=== PATIENT | female | born 1985 | race Caucasian/White ===

== ENCOUNTER 2019-09-20 10:03 | Outpatient (CLI) | payer MEDICAID, SELFPAY ==
--- NOTE | 2019-09-20 | US_ITS ---
WS: [id number] ABDOMINAL ULTRASOUND REASON FOR EXAM: LIVER ENZIMES TECHNIQUE: Grayscale and Doppler ultrasound examination of the abdomen. FINDINGS: Pancreas: Normal Abdominal aorta and IVC: Normal. Liver: Liver measures 12.6 cm in length. Coarse echotexture throughout the liver consistent with fatt y infiltration. Gallbladder: Status post cholecystectomy Common bile duct measures 0.39 cm multiple hepatopedal circu lation. Left kidney: Left kidney measures 10.8 cm x 6.1 cm x 5.8 cm. No hydronephrosis no stones Right kidney : Right kidney measures 10.7 cm x 5.6 cm x 5.6 cmNo . Hydronephrosis no stones US/US abdomen complete* [id number] IMPRESSION: Fatty infiltration of the liver Status post cholecystectomy
== END 2019-09-20 10:04 | disposition home or self-care (01) ==
LOC: US 10:07
PROVIDERS: PCP Family Medicine; Visit Provider Family Medicine
DX: R74.0 Nonspecific elevation of levels of transaminase and lactic acid dehydrogenase [LDH] (principal); K76.0 Fatty (change of) liver, not elsewhere classified
CPT/HCPCS: 76700

== ENCOUNTER 2019-12-11 15:11 | Outpatient (CLI) | payer MEDICAID, SELFPAY ==
--- NOTE | 2019-12-11 15:15 | XRR_ITS ---
PROCEDURE INFORMATION: Exam: XR Chest, 2 Views Exam date and time: 12/11/2019 3:31 PM Age: 34 years old Clinical indication: Cough and shortness of breath; Chest pain; Prior surgery; Surgery type: Lung biopsy; Additional info: Acute bronchiolitis TECHNIQUE: Imaging protocol: XR of the chest Views: 2 views. COMPARISON: CR Chest 2 views* [id number] 05/24/2017 11:57 AM FINDINGS: Lungs: Unremarkable. No consolidation. Pleural space: Unremarkable. No pleural effusion. No pneumothorax. Heart/Mediastinum: Unremarkable. No cardiomegaly. Bones/joints: Unremarkable. XR/XR chest 2V* [id number] IMPRESSION: No acute findings. For no change from prior x-ray.
== END 2019-12-11 15:12 | disposition home or self-care (01) ==
LOC: RAD 15:14
PROVIDERS: PCP Family Medicine; Visit Provider Family Medicine
DX: J21.9 Acute bronchiolitis, unspecified (principal)
CPT/HCPCS: 71046

== ENCOUNTER → 2022-08-01 13:56 | Outpatient (BNVA) | payer MEDICAID, SELFPAY | PROVIDERS: PCP Family Medicine; Visit Provider Nurse Practitioner | DX: M99.08 Segmental and somatic dysfunction of rib cage (principal) | CPT/HCPCS: 81000 ==

== ENCOUNTER → 2023-04-26 12:34 | Outpatient (BNVA) | payer MEDICAID, SELFPAY | PROVIDERS: PCP Family Medicine; Visit Provider Family Medicine | DX: E53.8 Deficiency of other specified B group vitamins (principal); E51.9 Thiamine deficiency, unspecified; Z13.220 Encounter for screening for lipoid disorders; E11.9 Type 2 diabetes mellitus without complications; Z51.81 Encounter for therapeutic drug level monitoring; E55.9 Vitamin D deficiency, unspecified | CPT/HCPCS: 80053; 80061; 82306; 82607; 83036; 84425; 85025 ==

== ENCOUNTER → 2023-09-21 13:10 | Outpatient (BNVA) | payer MEDICAID, SELFPAY | PROVIDERS: PCP Family Medicine; Visit Provider Family Medicine | DX: Z51.81 Encounter for therapeutic drug level monitoring (principal); E11.9 Type 2 diabetes mellitus without complications; E55.9 Vitamin D deficiency, unspecified | CPT/HCPCS: 80053; 82306; 83036; 85025 ==

== ENCOUNTER → 2024-01-05 10:01 | Outpatient (BNVA) | payer MEDICAID, SELFPAY | PROVIDERS: PCP Family Medicine; Visit Provider Family Medicine | DX: E11.9 Type 2 diabetes mellitus without complications (principal) | CPT/HCPCS: 83036 ==

== ENCOUNTER → 2024-04-25 10:11 | Outpatient (BNVA) | payer MEDICAID, SELFPAY | PROVIDERS: PCP Family Medicine; Visit Provider Student in an Organized Health Care Education/Training Program | DX: G56.03 Carpal tunnel syndrome, bilateral upper limbs | CPT/HCPCS: 73110; 99203 ==

== ENCOUNTER → 2024-05-08 12:57 | Outpatient (BNVA) | payer MEDICAID, SELFPAY | PROVIDERS: PCP Family Medicine; Visit Provider Family Medicine | DX: E11.9 Type 2 diabetes mellitus without complications (principal) | CPT/HCPCS: 83036 ==

== ENCOUNTER → 2024-05-09 15:58 | Outpatient (BNVA) | payer MEDICAID, SELFPAY | PROVIDERS: PCP Family Medicine; Referring Provider Student in an Organized Health Care Education/Training Program; Visit Provider Psychiatry & Neurology Neurology | DX: R20.0 Anesthesia of skin (principal) | CPT/HCPCS: 95912 ==

== ENCOUNTER → 2024-06-19 14:20 | Outpatient (BNVA) | payer MEDICAID, SELFPAY | PROVIDERS: PCP Family Medicine; Visit Provider Student in an Organized Health Care Education/Training Program | DX: G56.03 Carpal tunnel syndrome, bilateral upper limbs (principal) | CPT/HCPCS: 99214 ==

== ENCOUNTER 2024-07-12 06:30 | Day surgery (SDC) | payer MEDICAID, SELFPAY ==
[2024-07-12] VITALS (8 sets, daily range): BP systolic 138–177; BP diastolic 76–113; PULSE 84–102; RESP 16–18; TEMP 36.1–36.4; O2SAT 97–100; BMI 28.3
[2024-07-12] MEDS: sodium chloride 0.9% 1,000 ML 30 ML IV (07:00)
[2024-07-12 07:01] LABS: Glucose Point of Care 119 mg/dL (70-110)
[2024-07-12] MEDS: acetaminophen 1,000 MG/100 ML PIGGYBACK 400 MG IV (07:01)
[2024-07-12] MEDS: scopolamine 1 mg PATCH 1 PATCH TRANSDERMA (07:01)
[2024-07-12] MEDS: ketorolac 30 mg/mL INJ IVP (07:01)
--- NOTE | 2024-07-12 07:33 | ANES.PREANE2 ---
Pre-Anesthetic Assessment Height/Weight: Height 1.55 m Weight 68.039 kg Temp Pulse Resp BP Pulse Ox O2 Del Method 97.5 F L 99 16 155/110 98 Room Air 07/12/24 06:46 07/12/24 06:46 07/12/24 06:46 07/12/24 07:01 07/12/24 06:46 07/12/24 06:46 Operation Date: 07/12/24 08:00 Proposed Procedures p RIGHT Carpal Tunnel Release(Right) - David Ortiz, Last intake: Intake Last Liquid Date 07/11/24 Last Liquid Time 20:30 Last Solid Date 07/11/24 Last Solid Time 20:30 Social Tobacco and No alcohol Exam alert, oriented x 3 and clear to auscultation bilaterally (Normal Cardiac) Airway Submandibular: within normal limits Cervical ROM: within normal limits Mallampati: Class II Pulmonary Chronic Obstructive Pulmonary Disease Metabolic Diabetes Mellitus and Hyperlipidemia Neuropsych Anxiety and Depression Anesthetic Plan ASA status: 3 Anesthesia: MAC Medications/Allergies Home Medications ?Medication ?Instructions ?Recorded ?Confirmed ?Last Taken ?Type blood sugar diagnostic (True #100 ea 04/26/23 06/19/24 07/11/24 20:30 Rx Metrix Glucose Test Strip) cyanocobalamin (vitamin B-12) 500 500 mcg PO DAILY #30 tabs 04/26/23 07/11/24 07/11/24 20:30 Rx mcg tablet (Vitamin B-12) pen needle, diabetic 31 gauge x #100 ea 04/26/23 06/19/24 07/11/24 20:30 Rx 5/16 (TechLITE Pen Needle) thiamine HCl (vitamin B1) 100 mg 100 mg PO DAILY #30 tabs 04/26/23 07/11/24 07/11/24 20:30 Rx tablet blood sugar diagnostic (OneTouch #100 ea 04/27/23 06/19/24 07/11/24 20:30 Rx Ultra Test strips) blood-glucose meter (OneTouch #1 ea 04/27/23 06/19/24 07/11/24 20:30 Rx Ultra2 Meter) lancets 33 gauge (OneTouch Delica #100 ea 04/27/23 06/19/24 07/11/24 20:30 Rx Plus Lancet) cholecalciferol (vitamin D3) 50 50 mcg PO DAILY #30 caps 05/24/23 07/11/24 07/11/24 20:30 Rx mcg (2,000 unit) capsule insulin glargine 100 unit/mL (3 35 unit (0.35 mL) SUBCUT QAM #15 mL 08/22/23 07/11/24 07/11/24 20:30 Rx mL) subcutaneous pen (Lantus Solostar U-100 Insulin) Symbicort 80 mcg-4.5 mcg/actuation See Rx Instructions .Route 12/26/23 07/11/24 07/11/24 20:30 Rx HFA aerosol inhaler .COMPLEX #11 grams (budesonide-formoterol) quetiapine 25 mg tablet (Seroquel) 25 mg PO DAILY #30 tabs 12/26/23 07/11/24 07/11/24 20:30 Rx venlafaxine 75 mg capsule,extended See Rx Instructions .Route 12/26/23 07/11/24 07/11/24 20:30 Rx release 24 hr .COMPLEX #30 caps blood-glucose meter,continuous #1 ea 01/05/24 06/19/24 07/11/24 20:30 Rx (Dexcom G6 Environmental Health Physician) blood-glucose sensor (Dexcom G6 #3 ea 01/05/24 06/19/24 07/11/24 20:30 Rx Sensor device) atorvastatin 10 mg tablet 10 mg PO DAILY #30 tabs 03/04/24 07/11/24 07/11/24 20:30 Rx pen needle, diabetic 31 gauge x #100 ea 03/04/24 06/19/24 07/11/24 20:30 Rx 5/16 (Pentips Pen Needle) albuterol sulfate 90 mcg/actuation 2 puff inhalation Q6H PRN 04/15/24 07/11/24 07/11/24 20:30 Rx aerosol inhaler shortness of breath or wheezing #8.5 grams metformin 500 mg tablet 500 mg PO BID #60 tabs 04/15/24 07/11/24 07/11/24 20:30 Rx blood-glucose transmitter (Dexcom #1 ea 05/08/24 06/19/24 07/11/24 20:30 Rx G6 Transmitter device) dulaglutide 1.5 mg/0.5 mL See Rx Instructions .Route 02/08/2507/11/24 07/11/24 20:30 Rx subcutaneous pen injector .COMPLEX #2 mL Allergies Allergy/AdvReac Type Severity Reaction Status Date / Time gabapentin Allergy Severe unknown Verified 07/12/24 06:42 amitriptyline Allergy ADR-slurred Verified 07/12/24 06:42 words Current Medications Generic Name Dose Route Start Last Admin Trade Name Freq PRN Reason Stop Dose Admin Sodium Chloride 1,000 mls @ 30 mls/hr 07/12/24 06:45 07/12/24 07:00 Sodium Chloride 0.9% IV 07/13/24 06:44 30 mls/hr .Q24H YARI Administration PFSH Anesthesia Medical History Diabetes Essential hypertension COPD (chronic obstructive pulmonary disease) Saw Dr. Pan at [facility] - Doesn't want to see again Surgical History Hx of cholecystectomy Hx of hysterectomy with BLO Family History Father CAD (coronary artery disease) Mother Cancer cervical cancer Social History Smoking and tobacco/nicotine status: current every day tobacco/nicotine user cigarettes Packs smoked per day: 0.25 Current occupational status: employed Current occupation: [employer] View Data Anesthesia Cardiac Studies: No Data to Display
--- NOTE | 2024-07-12 07:41 | W.PM.OPSUD ---
Surgery/Procedure H&P Update DATE OF PROCEDURE: July 12, 2024 DATE H&P PERFORMED: 06/19/24 H&P UPDATE INFORMATION: I have reviewed H&P completed within last 30 days, I have examined patient prior to procedure and No changes to prior documentation PREOP DIAGNOSIS: Right carpal tunnel syndrome PRIMARY INDICATION FOR PROCEDURE: Right carpal tunnel syndrome PLANNED PROCEDURE: Operation Date: 07/12/24 08:00 Proposed Procedures p RIGHT Carpal Tunnel Release(Right) - David Ortiz DO
[2024-07-12] MEDS: ceFAZolin 2,000 MG in sodium chloride 0.9% (plus) 50 ML 100 MG IV (07:51)
[2024-07-12] MEDS: ROPivacaine 0.5% SDV 30 mL 150 MG INJECTION (08:08)
[2024-07-12] MEDS: lidocaine-epi 1% 20 mL INJ INJECTION (08:09)
--- NOTE | 2024-07-12 08:27 | P.BOP_ITS ---
Date of Procedure: 07/12/24 Surgeon: David Ortiz DO Crane Assembler(s): None Procedure(s) performed: Right carpal tunnel release Findings of the procedure(s): Underwent procedure as planned without issues or complications Estimated blood loss: 2 mL Specimen(s) removed: None Post-operative diagnosis: Right carpal tunnel syndrome
--- NOTE | 2024-07-12 08:28 | P.OP_ITS ---
Operative Report Date of procedure: July 12, 2024 Surgeon: David Ortiz DO Procedure: Preop Diagnosis: Right Carpal Tunnel Syndrome Post-op diagnosis: Same Procedure done: 1. Right carpal tunnel release Surgeon: David Ortiz DO Anesthesia: MAC (Local) Estimated blood loss: 2 mL Tourniquet time 6 minutes IV fluids: See anesthesia record Complications: None Findings: See operative report narrative Condition: stable Disposition: same day Brief History: Patient is a pleasant 39 year-old female with right carpal tunnel syndrome. Patient has been worked up in the outpatient setting findings and physical exami nation consistent with this. Patient nerve conduction studies consistent with carpal tunnel syndrome. We detailed out patient's risk benefits complication alternatives with surgical and nonsurgical treatment options. Through shared decision making, patient agrees to proceed with surgical intervention of the right carpal tunnel release . Patient understands and agrees with current plan. All questions answered. Patient elects to proceed with surgical intervention with carpal tunnel release. Procedure: Patient seen and evaluated in the preoperative holding area. Consent was reviewed and signed with patient. Correct extremity was marked. Patient was seen evaluated by the anesthesia department once cleared for surgery was brought back to the operative suite. Patient was kept on [facility] in supine position all bony prominences were well-padded patient properly secured to the bed. Right upper extremity was then placed onto an armboard. A nonsterile tourniquet was applied to the Right upper arm. Patient underwent anesthesia per the anesthesia department. Patient's Right upper extremity was then prepped and draped in standard orthopedic fashion. Final timeout performed. Patient received appropriate preoperative antibiotics. Under sterile aseptic technique patient received local anesthesia over the preplanned carpal tunnel incision site. Esmarch was used to exsanguinate the Right upper extremity and tourniquet was insufflated to 250 mmHg. A standard mini open Right carpal tunnel incision was made. Starting distally at Angel's cardinal line in line with the fourth ray extending proximally distal to the wrist crease centered over the carpal tunnel. Sharp scalpel incision was made through skin and subcutaneous tissue. Self-retaining retractor was placed and the palmar fascia was identified. This was then split longitudinally and direct visualization of the transverse carpal ligament was then made. I then utilizing scalpel feathered through the transverse carpal ligament until I entered the floor of the transverse carpal tunnel ligament into the carpal tunnel. Next I switched to dissection scissors and completed my release of the transverse carpal ligament distally with care to protect the recurrent motor branch. I completely released into the palmar fat and until no entrapment was noted distally. Care was made to protect the superficial palmar arch during my distal dissection. Next I utilized a nasal speculum placed on top of the transverse carpal ligament and utilize this to retract the subcutaneous fat and tissue and under direct loupe magnification was able to identify the transverse carpal ligament. Next I then protected the contents of the carpal tunnel and subsequently utilizing dissection scissors under loupe magnification completely released the transverse carpal ligament proximally into the antebrachial fascia. Care was made to protect the palmar cutaneous branch by keeping my scissors curved ulnarly. Once completely released, I then placed my Richardson and had appropriate decompression of the carpal tunnel proximally as well as distally. I then inspected the contents of the carpal tunnel which showed an hourglass shape of the median nerve showing its compression. No masses were noted. Tendons appeared healthy. Wound was then thoroughly irrigated. Tourniquet deflated. Hemostasis satisfactory with bipolar electrocautery. I then closed the incision with interrupted nylon stitches. Xeroform 4 x 4's and a bulky soft dressing was applied. Patient was then awakened from anesthesia and taken to PACU in stable condition. Patient tolerated procedure without complications. Disposition: Patient taken to PACU in stable condition recovering well. Dressing clean dry and intact. Patient will receive appropriate discharge instructions as well as pain medication postoperatively. Patient to follow-up with me in the office in 2 weeks. They understand they may be weightbearing as tolerated to the right hand. Patient should keep incision clean dry and intact. Patient understands if any questions or concerns may contact the office.
[2024-07-12] MEDS: TRAMadol 50 mg Tablet PO (09:00)
--- NOTE | 2024-07-12 11:36 | ANE.PACU2 ---
Inpatient post-anesthesia follow up: Vital signs: Temperature 97.0 F Pulse Rate 91 Respiratory Rate 18 Blood Pressure 177/103 Pulse Oximetry 99 Oxygen Delivery Me thod Room Air Oxygen Flow Rate Fraction of Inspir ed Oxygen Hydration adequate: Yes Nausea and vomiting: No Pain level: 3 Mental status: Baseline
== END 2024-07-12 09:18 | disposition home or self-care (01) ==
PROVIDERS: PCP Family Medicine; Visit Provider Student in an Organized Health Care Education/Training Program
PROC: (CPT 64721; principal; 2024-07-12 07:50)
DX: G56.03 Carpal tunnel syndrome, bilateral upper limbs (principal); J44.9 Chronic obstructive pulmonary disease, unspecified; E11.9 Type 2 diabetes mellitus without complications; E78.5 Hyperlipidemia, unspecified; I10 Essential (primary) hypertension; F17.210 Nicotine dependence, cigarettes, uncomplicated; Z79.899 Other long term (current) drug therapy; Z79.4 Long term (current) use of insulin; Z79.84 Long term (current) use of oral hypoglycemic drugs; Z79.85 Long-term (current) use of injectable non-insulin antidiabetic drugs; Z88.8 Allergy status to other drugs, medicaments and biological substances
CPT/HCPCS: 64721; 36416; 82962; J0131; J0690; J1885; J2250; J2795; J3010; J7030; J9999

== ENCOUNTER → 2024-07-26 08:39 | Outpatient (BNVA) | payer MEDICAID, SELFPAY | PROVIDERS: PCP Family Medicine; Visit Provider Physician Assistant | DX: Z98.890 Other specified postprocedural states (principal) | CPT/HCPCS: 99213 ==

== ENCOUNTER → 2024-08-08 09:20 | Outpatient (BNVA) | payer MEDICAID, SELFPAY | PROVIDERS: PCP Family Medicine; Visit Provider Family Medicine | DX: E55.9 Vitamin D deficiency, unspecified (principal); Z51.81 Encounter for therapeutic drug level monitoring; Z00.00 Encounter for general adult medical examination without abnormal findings; E11.9 Type 2 diabetes mellitus without complications; Z13.6 Encounter for screening for cardiovascular disorders; E53.8 Deficiency of other specified B group vitamins; E66.9 Obesity, unspecified | CPT/HCPCS: 80053; 80061; 82306; 82607; 83036; 85025 ==

== ENCOUNTER → 2024-09-19 13:37 | Outpatient (BNVA) | payer MEDICAID, SELFPAY | PROVIDERS: PCP Family Medicine; Visit Provider Physician Assistant | DX: G56.02 Carpal tunnel syndrome, left upper limb (principal); G56.22 Lesion of ulnar nerve, left upper limb | CPT/HCPCS: 99214 ==

== ENCOUNTER 2024-10-31 15:14 | Emergency (ER) | payer MEDICAID, SELFPAY ==
[2024-10-31 15:20] VITALS: BP 137/90; PULSE 99; RESP 18; TEMP 36.6; O2SAT 97; BMI 34.5
--- NOTE | 2024-10-31 16:14 | ED_ITS ---
HPI - General Adult 2 General: Chief complaint: General Medical Stated complaint: High sugar levels sent from dr cabello Time Seen by Provider: 10/31/24 15:53 History of Present Illness: 39-year-old female with history of diabe lori and hyperlipidemia who presents to the ED with elevated blood sugar over the past couple days. Patient states that her sugars have been in the 400s and this morning it was too high to register. She was at her PCPs office and was given a fast acting insulin and instructed to go to the ED. She reports of blurry vision and polyuria but denies any dysuria, hematuria, flank pain, fevers, abdominal pain, nausea, vomiting, headache, or weakness. She is on metformin 500 mg twice daily, Trulicity 1.5 mg/0.5 mL, and Lantus in the morning. She states that she missed her medications 4 days ago but has been taking them as directed since then. No other complaints at this time. Associated symptoms: Deny chest pain, dyspnea, headache(s), nausea or vomiting Related Data Home Medications ?Medication ?Instructions ?Recorded ?Confirmed budesonide-formoterol HFA 80 1 puff inhalation BID 10/31/24 mcg-4.5 mcg/actuation aerosol inhaler (Symbicort) venlafaxine 75 mg capsule,extended 75 mg PO DAILY 10/0310/31/24 release 24 hr Previous Rx's ?Medication ?Instructions ?Recorded blood sugar diagnostic (True #100 ea 04/26/23 Metrix Glucose Test Strip) cyanocobalamin (vitamin B-12) 500 500 mcg PO DAILY #30 tabs 04/26/23 mcg tablet (Vitamin B-12) thiamine HCl (vitamin B1) 100 mg 100 mg PO DAILY #30 t abs 04/26/23 tablet blood sugar diagnostic (OneTouch #100 ea 04/27/23 Ultra Test strips) blood-glucose meter (OneTouch #1 ea 04/27/23 Ultra2 Meter) lancets 33 gauge (OneTouch Delica #100 ea 04/27/23 Plus Lancet) pen needle, diabetic 31 gauge x #100 ea 03/04/24 5/16 (Pentips Pen Needle) albuterol sulfate 90 mcg/actuation 2 puff inhalation Q 6H PRN 04/15/24 aerosol inhaler shortness of breath or wheez ing #8.5 grams metformin 500 mg tablet 500 mg PO BID #60 tabs 04/15 dulaglutide 1.5 mg/0.5 mL See Rx Instructions .Route 0 05/08/24 subcutaneous pen injector .COMPLEX #2 mL atorvastatin 20 mg tablet 20 mg PO DAILY #30 tabs 08/01 09/25 blood-glucose sensor (Dexcom G6 #3 ea 08/16/24 Sensor device) blood-glucose transmitter (Dexcom #1 ea 08/16/24 G6 Transmitter device) cholecalciferol (vitamin D3) 50 100 mcg (2 x 50 mcg (2 ,000 unit)) 08/16/24 mcg (2,000 unit) capsule PO DAILY #60 caps quetiapine 25 mg tablet (Seroquel) 25 mg PO DAILY #30 tabs 08/16/24 blood-glucose,acoustical logging engineer,cont #2 ea 10/30/24 (Dexcom G6 Vp Director Of Finance) insulin glargine 100 unit/mL (3 25 unit (0.25 mL) SUBC UT QAM #15 mL 10/30/24 mL) subcutaneous pen (Lantus Solostar U-100 Insulin) insulin lispro 100 unit/mL 12 unit (0.12 mL) SUBCUT .A [facility] #15 10/31/24 subcutaneous pen (Humalog KwikPen mL (U-100) Insulin) pen needle, diabetic 31 gauge x #100 ea 10/31/2408/16 (TechLITE Pen Needle) Allergies Allergy/AdvReac Type Severity Reaction Status Date / Time gabapentin Allergy Severe unknown Verified 09/19/24 13:46 amitriptyline Allergy ADR-slurred Verified 09/19/24 13:46 words Review of Systems 2 Const: Denies: fever(s) or chills Eyes: Reports: change in vision and blurry vision; Denies: blind spots or photophobia Card: Denies: chest pain Resp: Denies: dyspnea or non-productive cough GI: Denies: abdominal pain, nausea or vomiting : Reports: urinary frequency; Denies: difficulty voiding or dysuria Musc: Denies: neck pain or back pain Neuro: Denies: headache(s) or weakness in extremities Psych: Denies: anxiety or depression Endo: Reports: polyuria and polydipsia PFSH ED 2 PFSH: Medical History (Updated 10/31/24 @ 21:36 by ABELARDO Cota) Diabetes Essential hypertension COPD (chronic obstructive pulmonary disease) Saw Dr. Pan at [facility] - Doesn't want to see again Surgical History History of carpal tunnel surgery of right wrist 07/2024 - [facility] Hx of cholecystectomy Hx of hysterectomy with BLO Family History Father CAD (coronary artery disease) Mother Cancer cervical cancer Social History Smoking and tobacco/nicotine status: never used tobacco/nicotine Current occupational status: employed Current occupation: [employer] Physical Exam 2 Const: COMMON NORMALS: no acute distress, average body habitus and patient oriented x3 HENMT: COMMON NORMALS: normocephalic and atraumatic HEAD & SCALP: normal to inspection, normocephalic and atraumatic Eye: COMMON NORMALS: Equal, round and reactive pupils present, EOMs intact bilaterally and conjunctivae normal CONJUNCTIVA: Yes conjunctivae normal P UPIL: Yes Equal, round and reactive pupils present Chest: COMMONS NORMALS: normal inspection of the chest and normal palpation of entire chest wall Resp: COMMON NORMALS: normal respiratory effort and clear to auscultation bilaterally AUSCULTATION: clear to auscultation bilaterally Cardio: COMMON NORMALS: regular rate and regular rhythm RATE: regular rate RHYTHM: regular rhythm GI: COMMON NORMALS: Normal to inspection, nondistended, normoactive bowel sounds present, Soft to palpation, non-tender and No hepatosplenomegaly present PALPATION: Yes Soft to palpation and Yes No hepatosplenomegaly present : COMMON NORMALS: Yes no CVA tenderness BLADDER/KIDNEY EXAM: Yes no CVA tenderness Back/Pelvis: COMMON NORMALS: no CVA tenderness and thoracic and lumbar spine normal to inspection Extremity: COMMON NORMALS: normal to inspection, full ROM and capillary refill normal Neuro: COMMON NORMALS: patient oriented x3 Psych: COMMON NORMALS: mental status grossly normal, Normal thought process present and cooperative THOUGHT PROCESS: Normal thought process present Course 2 Vital Signs: Vital signs: Vital Signs Temperature 97.9 F 10/31/24 15:20 Pulse Rate 103 H 10/31/24 18:44 Respiratory Rate 18 10/31/24 15:20 Blood Pressure 137/90 10/31/24 15:20 Pulse Oximetry 95 10/31/24 18:44 Oxygen Delivery Me thod Room Air 10/31/24 18:44 MDM - General Adult Medical Decision Making Patient is 39-year-old female with uncontrolled type 2 diabetes mellitus. Patient was just prescribed lispro at the doctor for short acting insulin today. Given her high reading, she was sent to the emergency room. Since leaving the doctor's office, she had noodles at the [employer] locally. Blood sugar here was 527. She did not require insulin drip. Potassium was low at 3.2, and she was given regular insulin 20 units IV with a recheck that is pending. Given her potassium already low at 3.2, she was also given potassium chloride. Patient does have complaints of polyuria, polydipsia, and inability to control her thirst. That explains a pseudohyponatremia with her sodium of 132. Patient has association of transaminitis. Suspect fatty liver. Will add on a acute hepatitis panel routinely so she can follow-up with this with her primary doctor. Medical Records I reviewed the patient's medical records. Lab Data I reviewed the patient's lab results. 10/31/24 16:15 10/31/24 16:15 Laboratory Results WBC 7.75 10^3/uL (3.29-11.43) 10/31/24 16:15 RBC 5.30 10^6/uL (3.85-5.65) 10/31/24 16:15 Hgb 16.10 g/dL (11.27-16.99) 10/31/24 16:15 Hct 45.3 % (36-47) 10/31/24 16:15 MCV 85.5 fl (85-98) 10/31/24 16:15 MCH 30.4 pg (27-33) 10/31/24 16:15 MCHC 35.5 g/dL (30-55) 10/31/24 16:15 RDW 12.2 % (12.1-15.1) 10/31/24 16:15 Plt Count 128 10^3/cmm (157-399) L 10/31/24 16:15 MPV 14.1 fL (7.4-10.4) H 10/31/24 16:15 Neut % (Auto) 49.8 % 10/31/24 16:15 Lymph % (Auto) 38.5 % 10/31/24 16:15 [place] % (Auto) 5.7 % 10/31/24 16:15 Eos % (Auto) 5.2 % 10/31/24 16:15 Baso % (Auto) 0.5 % 10/31/24 16:15 Neut # (Auto) 3.87 10^3/uL (1.8-7.7) 10/31/24 16:15 Lymph # (Auto) 3.0 10^3/uL (0.8-4.8) 10/31/24 16:15 [place] # (Auto) 0.4 10^3/uL (0.2-0.9) 10/31/24 16:15 Eos # (Auto) 0.4 10^3/uL (0.0-0.8) 10/31/24 16:15 Baso # (Auto) 0.0 10^3/uL (0.0-0.1) 10/31/24 16:15 Nucleated RBC % (auto) 0 % 10/31/24 16:15 Nucleated RBCs # 0.0 /100WBC 10/31/24 16:15 Specimen Type Arterial 10/31/24 16:15 Sample Site Na 10/31/24 16:15 Fili Test N/a 10/31/24 16:15 VBG pH 7.44 (7.32-7.42) H 10/31/24 16:15 VBG pCO2 41.0 mmHg (41-51) 10/31/24 16:15 VBG pO2 49.9 mmHg (25-40) H 10/31/24 16:15 VBG HCO3 27.7 mmol/L (24-28) 10/31/24 16:15 VBG Base Excess 3.1 mmol/L (-3.0-3.0) H 10/31/24 16:15 VBG Hematocrit 51.1 % (37-47) H 10/31/24 16:15 O2 Delivery Device None 10/31/24 16:15 Merchandiser Retail Representative ID Cak 10/31/24 16:15 Sodium 132 mmol/L (136-145) L 10/31/24 16:15 Potassium 3.2 mmol/L (3.5-5.1) L 10/31/24 16:15 Chloride 91 mmol/L (98-107) L 10/31/24 16:15 Carbon Dioxide 26 mmol/L (22-29) 10/31/24 16:15 Anion Gap 18.2 (5-19) 10/31/24 16:15 BUN 4 mg/dL (6-20) L 10/31/24 16:15 Creatinine 0.6 mg/dL (0.5-0.9) 10/31/24 16:15 GFR Calculation 112.5 mL/min (90-130) 10/31/24 16:15 Glucose 527 mg/dL (65-115) H* 10/31/24 16:15 POC Glucose 218 mg/dL (70-110) H 10/31/24 18:31 Calculated Osmolality 295 mOsm/kg (285-295) 10/31/24 16:15 Calcium 9.4 mg/dL (8.5-10.5) 10/31/24 16:15 Phosphorus 2.7 mg/dL (2.5-4.5) 10/31/24 16:15 Magnesium 2.0 mg/dL (1.7-2.3) 10/31/24 16:15 Total Bilirubin 0.7 mg/dL (0.15-1.2) 10/31/24 16:15 AST 59 U/L (0-32) H 10/31/24 16:15 ALT 106 U/L (0-33) H 10/31/24 16:15 Alkaline Phosphatase 221 U/L (35-105) H 10/31/24 16:15 Total Protein 7.6 g/dL (6.6-8.7) 10/31/24 16:15 Albumin 4.3 g/dL (3.5-5.2) 10/31/24 16:15 Globulin 3.3 g/dL (1.3-4.6) 10/31/24 16:15 Serum Ketones Negative (Negative) 10/31/24 16:15 No radiology studies performed this visit Discharge Plan Discharge Patient Disposition: Home Clinical Impression: Hyperosmolar hyperglycemic state (HHS), Abnormal transaminases Condition: Stable Prescriptions: No Action (DME) True Metrix Glucose Test Strip Strip See Rx Instructions .Route Qty: 100 6RF Rx Instructions: As directed thiamine HCl (vitamin B1) 100 mg tablet 100 mg PO DAILY Qty: 30 6RF cyanocobalamin (vitamin B-12) [Vitamin B-12] 500 mcg tablet 500 mcg PO DAILY Qty: 30 6RF dulaglutide 1.5 mg/0.5 mL pen injector See Rx Instructions .ROUTE .COMPLEX Qty: 2 3RF Dose Instruction: INJECT 0.75MG (0.5ML) SUBCUTANEOUSLY EVERY 7 DAYS Rx Instructions: INJECT 1.5MG (0.5ML) SUBCUTANEOUSLY EVERY 7 DAYS (DME) pen needle, diabetic [TechLITE Pen Needle] 31 gauge x 5/16 needle See Rx Instructions .ROUTE .MEDSUPPLY Qty: 100 6RF Rx Instructions: As directed insulin lispro [Humalog KwikPen Insulin] 100 unit/mL insulin pen 12 unit SUBCUT .ACHS Qty: 15 3RF Rx Instructions: Sliding scale - ACHS Glucose 150-200 - 2 units 201-250 - 4U 251-300 - 6U 301-350 - 8U 351-400 - 10U 450+ - 12U atorvastatin 20 mg tablet 20 mg PO DAILY Qty: 30 6RF quetiapine [Seroquel] 25 mg tablet 25 mg PO DAILY Qty: 30 6RF (DME) Dexcom G6 Transmitter Device See Rx Instructions .Route Qty: 1 6RF Rx Instructions: As directed (DME) Dexcom G6 Sensor Device See Rx Instructions .Route Qty: 3 6RF Rx Instructions: As directed cholecalciferol (vitamin D3) 50 mcg (2,000 unit) capsule 100 mcg PO DAILY Qty: 60 6RF (DME) blood-glucose meter [OneTouch Ultra2 Meter] Misc See Rx Instructions .Route Qty: 1 0RF Rx Instructions: As directed (DME) lancets [OneTouch Delica Plus Lancet] 33 gauge misc See Rx Instructions .ROUTE .MEDSUPPLY Qty: 100 12RF Rx Instructions: As directed (DME) OneTouch Ultra Test Strip See Rx Instructions .Route Qty: 100 6RF Rx Instructions: As directed to test glucose TID (DME) pen needle, diabetic [Pentips Pen Needle] 31 gauge x 5/16 needle See Rx Instructions .ROUTE .COMPLEX Qty: 100 6RF Dose Instruction: USE DIRECTED Rx Instructions: USE DIRECTED metformin 500 mg tablet 500 mg PO BID Qty: 60 6RF albuterol sulfate 90 mcg/actuation HFA aerosol inhaler 2 puff inhalation Q6H PRN (Reason: shortness of breath or wheezing) Qty: 8.5 6RF insulin glargine [Lantus Solostar U-100 Insulin] 100 unit/mL (3 mL) insulin pen 25 unit SUBCUT QAM Qty: 15 6RF Rx Instructions: Inject 25 units daily. Increase by 5 units Q3 days if fasting glucose>150 consistently (DME) Dexcom G6 Vp Director Of Finance Misc See Rx Instructions .Route Qty: 2 6RF Rx Instructions: As directed budesonide-formoterol [Symbicort] 80-4.5 mcg/actuation HFA aerosol inhaler 1 puff inhalation BID venlafaxine 75 mg capsule,extended release 24hr 75 mg PO DAILY Discharge Orders: Discharge ED (Routine); Ordered 10/31/24 Ordered By: Rubina High Referrals: Lewis Allen MD [Primary Care Provider, Family Practice] Discharge Diet: Clear Liquid Discharge Activity: Resume usual activity Patient Instructions: Hyperosmolar Hyperglycemic State (ED), Patient Portal & Sriram Instructions Activity Restrictions/Additional Instructions: Caution on fluid intake as as you are thirsty, your blood glucose is higher as we discussed. If you are unable to obtain your insulin short acting through the pharmacy due to your insurance, obtain the Humulin regular insulin [id number] from [facility]. You go to the desk and asked to have the regular insulin. They can give you rogers, however a bottle typically runs about $25. Return to the ED for high blood glucose. Follow a low-carb diet. Your carbs with each meal when you do your insulin. For the next 24 hours, clear liquid, nonsweetened drinks are best. A clear liquid diet without sugars will help improve your blood glucose. Return to ED if you are having additional issues as you work, temperature greater 100.4. It is importantly follow-up with your primary care physician. Call tomorrow for an appointment. Print Language: Turkmen Coding Level of Care Code ED Foot Piece Assembler for Lakisha Camara
[2024-10-31 16:23] LABS: Base Excess VBG 3.1 mmol/L (-3.0-3.0); Blood Gas Operator Identificat CAK; Blood Gas Sample Type Arterial; HCO3 VBG 27.7 mmol/L (24-28); PCO2 VBG 41.0 mmHg (41-51); PO2 VBG 49.9 mmHg (25-40); Venous Blood Gas Hematocrit 51.1 % (37-47); pH VBG 7.44 (7.32-7.42)
[2024-10-31 16:32] LABS: Hematocrit 45.3 % (36-47); Hemoglobin 16.10 g/dL (11.27-16.99); Mean Corpuscular HGB Conc 35.5 g/dL (30-55); Mean Corpuscular Hemoglobin 30.4 pg (27-33); Mean Corpuscular Volume 85.5 fl (85-98); Nucleated Red Blood Cells % 0 %; Platelet Count 128 10^3/cmm (157-399); Red Blood Count 5.30 10^6/uL (3.85-5.65); White Blood Count 7.75 10^3/uL (3.29-11.43)
--- NOTE | 2024-10-31 16:35 | PC.PHAR ---
Pt has her med list on [employer] portal and is able to verify them.
[2024-10-31 16:39] LABS: Ketone (Acetest) Serum Negative (Negative)
[2024-10-31 16:53] LABS: Alanine Aminotransferase 106 U/L (0-33); Albumin Level 4.3 g/dL (3.5-5.2); Alkaline Phosphatase 221 U/L (35-105); Anion Gap 18.2 (5-19); Aspartate Amino Transferase 59 U/L (0-32); Blood Urea Nitrogen 4 mg/dL (6-20); Calcium 9.4 mg/dL (8.5-10.5); Carbon Dioxide 26 mmol/L (22-29); Chloride 91 mmol/L (98-107); Creatinine Clr Calc Pharmacy 130.4163; Globulin 3.3 g/dL (1.3-4.6); Magnesium 2.0 mg/dL (1.7-2.3); Osmolality Calculated 295 mOsm/kg (285-295); Potassium 3.2 mmol/L (3.5-5.1); Sodium 132 mmol/L (136-145); Total Protein 7.6 g/dL (6.6-8.7)
[2024-10-31 16:54] LABS: Glucose 527 mg/dL (65-115)
[2024-10-31 17:30] VITALS: PULSE 88; O2SAT 98
[2024-10-31] MEDS: insulin regular-human 100 units/1 mL 20 UNIT IVP (17:34)
[2024-10-31] MEDS: potassium chloride oral liq 20 mEq/15 mL UDC 40 MEQ PO (17:58)
[2024-10-31 18:44] VITALS: PULSE 103; O2SAT 95
[2024-10-31 21:50] LABS: Hepatitis A Antibody IgM Non-Reactive (Nonreactive); Hepatitis B Surface Antigen Non-Reactive (Nonreactive)
--- OUTSIDE RECORDS SUMMARY | 2024-11-01 06:50 | XMS_ITS | Encounter Summary ---
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
--- OUTSIDE RECORDS SUMMARY | 2024-11-01 06:50 | XMS_ITS | Encounter Summary ---
Author Organization [employer] Address [address] [place] [address] Care Team Providers Care Glassware Selector Name Role Phone Lewis Allen MD Primary Care Provider [phone] Encounter Details Date Type Department Care Team (Late st Contact Info) Description 04/07/2004 Outpatient Historical [facility] Janelle Lopez NP NO ADDRESS ON FILE Social History Tobacco Use Types Packs/Day Years Used Date Smoking Tobacco: Never Assessed Comments Unknown Sex and Gender Information Value Date Recorded Sex Assigned at Not on file Legal Sex Female 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
--- OUTSIDE RECORDS SUMMARY | 2024-11-01 06:50 | XMS_ITS | Encounter Summary ---
Author Organization [facility] Address [address] [place] [address] Care Team Providers Care Data Processing Consultant Name Role Phone Lewis Allen MD Primary Care Provider [phone] Encounter Details Date Type Department Care Team (Latest Contact Info) Description 11/04/2002 Outpatient Historical [facility] Family Medicine- [address] [place] [address] Ingris Yates MD NO ADDRESS ON FILE MED EXAM NEC-ADMIN PURP (Primary Dx) Social History Tobacco Use Types Packs/Day Years Used Date Smoking Tobacco: Never Assessed Comments Unknown Sex and Gender Information Value Date Recorded Sex Assigned at Not on file Legal Sex Female 2:38 AM WORD PROCESSING SPECIALIST Gender Identity Not on file Sexual Orientation Not on file documented as of this encounter Plan of Treatment Not on file documented as of this encounter Visit Diagnoses Diagnosis Other general medical examination for administrative purposes- Primary documented in this encounter Care Teams Data Processing Consultant Relationship Specialty Start Date End Date Lewis Allen MD [address] [place] [phone] PCP - General Family Practice 07/12/17 documented as of this encounter
--- OUTSIDE RECORDS SUMMARY | 2024-11-01 06:50 | XMS_ITS | Encounter Summary ---
Author Organization [employer] Address [address] [facility] Attn: Epic Prelude ADT KATT KRAMER [address] Care Team Providers Care Facility Examiner Name Role Phone Lewis Allen MD Primary Care Provider [phone] Encounter Details Date Type Department Care Team (Late st Contact Info) Description 11/26/2007 Outpatient Historical Non-Staff, Physician NO ADDRESS ON FILE Social History Tobacco Use Types Packs/Day Years Used Date Smoking Tobacco: Never Assessed Comments Unknown Sex and Gender Information Value Date Recorded Sex Assigned at Not on file Legal Sex Female 2:38 AM CLINICAL IMMUNOLOGIST Gender Identity Not on file Sexual Orientation Not on file documented as of this encounter Plan of Treatment Not on file documented as of this encounter Procedures Procedure Name Priority Date/Time Associated Diagnosis Comments GC, GENITAL Routine 11/26/2007 7:00 PM CDT CHLAMYDIA, GENITAL Routine 11/26/2007 7: 00 PM CDT documented in this encounter Results * GC DNA AMPLIFICATION (11/26/2007 7:00 PM CDT) FINAL REPORT DNA Amplification Assay: negative for Neisseria gonorrhoeae The Preeti Kore[employer] CT/NG test by Polymerase Chain Reaction (PCR) is approved for testing only on endocervical and male urethral swab specimens and male urine. The use of specimens from any other body site has not been validated. Detection of Neisseria gonorrhoeae is dependent on the number of organisms present in the specimen. This may be affected by patient factors, stage of infection, specimen collection methods, transport, storage and processing procedures. INTERFACE SYSTEM Specimen from genital system (specimen) CERVIX UTERI STRUCTURE / Unknown 11/26/2007 7:00 PM CDT 11/27/2007 10:09 PM CDT Physician Non-Staff MICROBIOLOGY - GENERAL ORDER EZEQUIEL Final Result Performing Organization Address City/[facility] Co de Phone Number INTERFACE SYSTEM Refer to clinic/hospital department * CHLAMYDIA DNA AMPLIFICATION (11/26/2007 7:00 PM CDT) FINAL REPORT DNA Amplification Assay: negative for Chlamydia trachomatis --------- The Preeti Korey Amplicor CT/NG test by Polymerase Chain Reaction (PCR) is approved for testing only on endocervical and male urethral swab specimens and urine. The use of specimens from any other body site has not been validated. Dectection of Chlamadia trachomatis is dependent on the number of organisms present in the specimen. This may be affected by patient factors, stage of infection, specimen collection methods, transport, storage and processing procedures. INTERFACE SYSTEM Specimen from genital system (specimen) CERVIX UTERI STRUCTURE / Unknown 11/26/2007 7:00 PM CDT 11/27/2007 10:09 PM CDT Physician Non-Staff MICROBIOLOGY - GENERAL ORDER EZEQUIEL Final Result Performing Organization Address City/[facility] Co de Phone Number INTERFACE SYSTEM Refer to clinic/hospital department documented in this encounter Visit Diagnoses Not on filedocumented in this encounter Care Teams Facility Examiner Relationship Specialty Start Date End Date Lewis Allen MD [address] [place] [phone] PCP - General Family Practice 07/12/17 documented as of this encounter
--- OUTSIDE RECORDS SUMMARY | 2024-11-01 06:50 | XMS_ITS | Encounter Summary ---
Author Organization [facility] Address [address] [place] [address] Care Team Providers Care Convertible Power Shovel Operator Name Role Phone Lewis Allen MD Primary Care Provider [phone] Encounter Details Date Type Department Care Team (Latest Contact Info) Description 04/01/2004 Outpatient Historical [facility] Family [facility] [place] [address] [facility] [address] [place] [address] Janelle Lopez NP NO ADDRESS ON FILE HAND INJURY NOS (Primary Dx); Pain in limb Social History Tobacco Use Types Packs/Day Years Used Date Smoking Tobacco: Never Assessed Comments Unknown Sex and Gender Information Value Date Recorded Sex Assigned at Not on file Legal Sex Female 2:38 AM DIGITAL MEDIA BUYER Gender Identity Not on file Sexual Orientation Not on file documented as of this encounter Plan of Treatment Not on file documented as of this encounter Visit Diagnoses Diagnosis Injury, other and unspecified, hand, except finger- Primary Pain in limb Pain in soft tissues of limb documented in this encounter Care Teams Convertible Power Shovel Operator Relationship Specialty Start Date End Date Lewis Allen MD [address] [place] [phone] PCP - General Family Practice 07/12/17 documented as of this encounter
--- OUTSIDE RECORDS SUMMARY | 2024-11-01 06:50 | XMS_ITS | Clinical Summary ---
Author Organization [facility] Address [address] [place] [address] Phone Care Team Providers Care Predatory Animal Trapper Name Role Phone Lewis Allen MD Primary Care Provider Allergies No known active allergies Medications albuterol (PROVENTIL,TRACIE DILCIA) 5 mg/mL Solution for Nebulization Take 2.5 mg by inhalation one time only. Active albuterol sulfate 90 mcg/Actuation inhaler Take 2 Puffs by inhalation every 6 hours as needed. Active fluticasone propion-salmeter oL (ADVAIR DISKUS,WIXELA INHUB) 250-50 mcg/dose disk inhaler Take 1 Puff by inhalation 2 times daily. Active lisinopriL (PRINIVIL) 10 mg tablet Take 10 mg by mouth daily. Active metFORMIN (GLUCOPHAGE) 500 mg tablet Take 500 mg by mouth 2 times daily with meals. Active insulin aspart (NovoLOG) 100 unit/mL injection Inject by subcutaneous injection 3 times daily with meals. Active budesonide-formo teroL (SYMBICORT) 160-4.5 mcg/actuation HFA Aerosol Inhaler Take 2 Puffs by inhalation 2 times daily. Active busPIRone (BUSPAR) 5 mg tablet Take 5 mg by mouth 3 times daily. Active pantoprazole (PROTONIX) 40 mg Tablet, Delayed Release (E.C.) Take 40 mg by mouth daily. Active Active Problems Problem Noted Date Diagnosed Date Erythromelalgia 03/29/2023 Cellulitis of upper extremity 03/29/2023 Cigarette nicotine dependence, uncomplicated Immunizations Immunization Administration Dates Next Due Hepatitis B Vaccine 08/08/2000,04/11/2000,1999 Social History Tobacco Use Types Packs/Day Years Used Date Smoking Tobacco: Every Day Cigarettes Smokeless Tobacco: Never Tobacco Cessation:Ready to Q uit: Not Asked; Counseling Given: Not Answered Alcohol Use Standard Drinks/Week Comments Not Currently 0 (1 standard drink = 0.6 oz pure alcohol) last drink approximately 01/15/23 Comments No Sex and Gender Information Value Date Recorded Sex Assigned at Not on file Legal Sex Female 1:26 AM BLACKTOP SPREADER Gender Identity Not on file Sexual Orientation Not on file Last Filed Vital Signs Vital Sign Reading Time Taken Comments Blood Pressure 205/186 03/29/2023 4:15 PM BLACKTOP SPREADER Pulse 116 03/29/2023 4:15 PM BLACKTOP SPREADER Temperature 37.2 C (98.9 F) 03/29/2023 3:07 PM BLACKTOP SPREADER Respiratory Rate 18 03/29/2023 4:15 PM BLACKTOP SPREADER Oxygen Saturation 99% 03/29/2023 4:15 PM BLACKTOP SPREADER Inhaled Oxygen Concentration - - Weight 87.7 kg (193 lb 6.4 oz) 03/29/2023 3:07 P M BLACKTOP SPREADER Height 154.9 cm (5' 1 ) 03/29/2023 3:07 PM BLACKTOP SPREADER Body Mass Index 36.54 03/29/2023 3:07 PM BLACKTOP SPREADER Plan of Treatment Health Maintenance Due Date Last Done Comments HPV VACCINES (1 - 3-dose series) 2002 DTAP/TDAP/TD VACCINES (1 - Tdap) 2006 HPV/Cotest (21-29) 01/15/2008 CERVICAL CANCER SCREENING 2017 HPV/Cotest (30-65) 2017 PAP SMEAR 2017 INFLUENZA VACCINE (#1) 2024 HEPATITIS B VACCINES Completed 08/08/2000, 04/11/2000, 03/10/2000 Insurance [place] [facility] [place] Care Teams Predatory Animal Trapper Relationship Specialty Start Date End Date Lewis Allen MD [facility] [place] [phone] PCP - General Family Practice 07/12/17
--- OUTSIDE RECORDS SUMMARY | 2024-11-01 06:50 | XMS_ITS | Encounter Summary ---
Author Organization [facility] Address [address] [place] [address] Care Team Providers Care Media Marketing Manager Name Role Phone Lewis Allen MD Primary Care Provider [phone] Encounter Details Date Type Department Care Team (Latest Contact Info) Description 09/30/[address] [facility] Family Medicine- [place] [address] [place] [address] Janelle Lopez NP NO ADDRESS ON FILE VAGINITIS NOS (Primary Dx) Social History Tobacco Use Types Packs/Day Years Used Date Smoking Tobacco: Never Assessed Comments Unknown Sex and Gender Information Value Date Recorded Sex Assigned at Not on file Legal Sex Female 2:38 AM ASSEMBLER TUBING Gender Identity Not on file Sexual Orientation Not on file documented as of this encounter Plan of Treatment Not on file documented as of this encounter Visit Diagnoses Diagnosis Vaginitis and vulvovaginitis, unspecified- Primary documented in this encounter Care Teams Media Marketing Manager Relationship Specialty Start Date End Date Lewis Allen MD [address] [place] [phone] PCP - General Family Practice 07/12/17 documented as of this encounter
--- OUTSIDE RECORDS SUMMARY | 2024-11-01 06:50 | XMS_ITS | Encounter Summary ---
Author Organization [facility] Address [address] [place] [address] Care Team Providers Care Nursing Consultant Name Role Phone Lewis Allen MD Primary Care Provider [phone] Encounter Details Date Type Department Care Team (Late st Contact Info) Description 10/20/2003 Outpatient Historical [facility] Family Medicine- [place] [address] [place] [phone] Janelle Lopez NP NO ADDRESS ON FILE Social History Tobacco Use Types Packs/Day Years Used Date Smoking Tobacco: Never Assessed Comments Unknown Sex and Gender Information Value Date Recorded Sex Assigned at Not on file Legal Sex Female 2:38 AM FORGE TENDER Gender Identity Not on file Sexual Orientation Not on file documented as of this encounter Plan of Treatment Not on file documented as of this encounter Visit Diagnoses Not on filedocumented in this encounter Care Teams Nursing Consultant Relationship Specialty Start Date End Date Lewis Allen MD [address] [place] [phone] PCP - General Family Practice 07/12/17 documented as of this encounter
--- OUTSIDE RECORDS SUMMARY | 2024-11-01 06:50 | XMS_ITS | Encounter Summary ---
Author Organization [facility] Address [address] [place] [address] Care Team Providers Care White Sidewall Tire Buffer Name Role Phone Lewis Allen MD Primary Care Provider [phone] Encounter Details Date Type Department Care Team (Latest Contact Info) Description 09/30/[address] [facility] Family Medicine- [address] [address] [place] [address] Janelle Lopez NP NO ADDRESS ON FILE VAGINITIS NOS (Primary Dx); CONTRACEPTIVE MANGMT NOS Social History Tobacco Use Types Packs/Day Years Used Date Smoking Tobacco: Never Assessed Comments Unknown Sex and Gender Information Value Date Recorded Sex Assigned at Not on file Legal Sex Female 2:38 AM RECIPROCATING DRILL OPERATOR Gender Identity Not on file Sexual Orientation Not on file documented as of this encounter Plan of Treatment Not on file documented as of this encounter Visit Diagnoses Diagnosis Vaginitis and vulvovaginitis, unspecified- Primary Unspecified contraceptive management documented in this encounter Care Teams White Sidewall Tire Buffer Relationship Specialty Start Date End Date Lewis Allen MD [facility] [place] [phone] PCP - General Family Practice 07/12/17 documented as of this encounter
--- OUTSIDE RECORDS SUMMARY | 2024-11-01 06:50 | XMS_ITS | Encounter Summary ---
Author Organization [facility] Address [address] [place] [address] Care Team Providers Care Manager Program Name Role Phone Lewis Allen MD Primary Care Provider [phone] Encounter Details Date Type Department Care Team (Latest Contact Info) Description 09/03/2003 Outpatient Historical [facility] Family Medicine- [place] [address] [place] [address] Janelle Lopez NP NO ADDRESS ON FILE OTHER MALAISE AND FATIGUE (Primary Dx); URIN TRACT INFECTION NOS; VAGINITIS NOS Social History Tobacco Use Types Packs/Day Years Used Date Smoking Tobacco: Never Assessed Comments Unknown Sex and Gender Information Value Date Recorded Sex Assigned at Not on file Legal Sex Female 2:38 AM MRI ASSISTANT Gender Identity Not on file Sexual Orientation Not on file documented as of this encounter Plan of Treatment Not on file documented as of this encounter Visit Diagnoses Diagnosis Other malaise and fatigue- Primary Urinary tract infection, site not specified Vaginitis and vulvovaginitis, unspecified documented in this encounter Care Teams Manager Program Relationship Specialty Start Date End Date Lewis Allen MD [address] [place] [phone] PCP - General Family Practice 07/12/17 documented as of this encounter
--- OUTSIDE RECORDS SUMMARY | 2024-11-01 06:50 | XMS_ITS | Encounter Summary ---
Author Organization [facility] Address [address] [place] [address] Care Team Providers Care Cns Name Role Phone Lewis Allen MD Primary Care Provider Encounter Details Date Type Department Care Team (Latest Contact Info) Description 08/19/2004 Outpatient Historical [facility] [place] Family Medicine [place] [address] [facility] [address] [place] [address] Leta Lomas, CLOTH CARRIER [address] [place] [address] VAGINITIS NOS (Primary Dx) Social History Tobacco Use Types Packs/Day Years Used Date Smoking Tobacco: Never Assessed Comments Unknown Sex and Gender Information Value Date Recorded Sex Assigned at Not on file Legal Sex Female 2:38 AM LINEN SUPPLY LOAD BUILDER Gender Identity Not on file Sexual Orientation Not on file documented as of this encounter Plan of Treatment Not on file documented as of this encounter Visit Diagnoses Diagnosis Vaginitis and vulvovaginitis, unspecified- Primary documented in this encounter Care Teams Cns Relationship Specialty Start Date End Date Lewis Allen MD [address] [place] [phone] PCP - General Family Practice 07/12/17 documented as of this encounter
--- OUTSIDE RECORDS SUMMARY | 2024-11-01 06:50 | XMS_ITS | Encounter Summary ---
Author Organization [facility] Address [address] [place] [address] Care Team Providers Care Geothermal Powerplant Mechanic Helper Name Role Phone Lewis Allen MD Primary Care Provider [phone] Encounter Details Date Type Department Care Team (Latest Contact Info) Description 08/19/2004 Outpatient Historical [facility] Family Medicine [place] [address] [facility] [address] [place] [address] Leta Lomas, PRIMARY MONTESSORI TEACHER [address] [place] [address] CONTRACEPTIVE MANGMT NOS (Primary Dx); NONINFECT VAG LEUKORRHEA Social History Tobacco Use Types Packs/Day Years Used Date Smoking Tobacco: Never Assessed Comments Unknown Sex and Gender Information Value Date Recorded Sex Assigned at Not on file Legal Sex Female 2:38 AM COMPUTER ASSISTANT Gender Identity Not on file Sexual Orientation Not on file documented as of this encounter Plan of Treatment Not on file documented as of this encounter Visit Diagnoses Diagnosis Unspecified contraceptive management- Primary Leukorrhea, not specified as infective documented in this encounter Care Teams Geothermal Powerplant Mechanic Helper Relationship Specialty Start Date End Date Lewis Allen MD [address] [place] [phone] PCP - General Family Practice 07/12/17 documented as of this encounter
--- OUTSIDE RECORDS SUMMARY | 2024-11-01 06:50 | XMS_ITS | Encounter Summary ---
Author Organization [facility] Address [address] [place] [address] Care Team Providers Care Black Top Spreader Machine Operator Name Role Phone Lewis Allen MD Primary Care Provider [phone] Encounter Details Date Type Department Care Team (Latest Contact Info) Description 10/15/2003 Outpatient Historical [facility] Family Medicine- [place] [address] [place] [phone] Janelle Lopez NP NO ADDRESS ON FILE GYNECOLOGIC EXAMINATION (Primary Dx) Social History Tobacco Use Types Packs/Day Years Used Date Smoking Tobacco: Never Assessed Comments Unknown Sex and Gender Information Value Date Recorded Sex Assigned at Not on file Legal Sex Female 2:38 AM CUSTOMER SUPPORT TECHNICIAN Gender Identity Not on file Sexual Orientation Not on file documented as of this encounter Plan of Treatment Not on file documented as of this encounter Visit Diagnoses Diagnosis Gynecological examination- Primary documented in this encounter Care Teams Black Top Spreader Machine Operator Relationship Specialty Start Date End Date Lewis Allen MD [address] [place] [phone] PCP - General Family Practice 07/12/17 documented as of this encounter
--- OUTSIDE RECORDS SUMMARY | 2024-11-01 06:50 | XMS_ITS | Encounter Summary ---
Author Organization [facility] Address [address] [place] [address] Care Team Providers Care [facility] Name Role Phone Lewis Allen MD Primary Care Provider [phone] Encounter Details Date Type Department Care Team (Latest Contact Info) Description 10/15/2003 Outpatient Historical [facility] Family Medicine- [place] [address] [place] [address] Janelle Lopez NP NO ADDRESS ON FILE VAGINITIS NOS (Primary Dx); Gynecologic examination; Idiopathic scoliosis Social History Tobacco Use Types Packs/Day Years Used Date Smoking Tobacco: Never Assessed Comments Unknown Sex and Gender Information Value Date Recorded Sex Assigned at Not on file Legal Sex Female 2:38 AM SALES DEMONSTRATOR Gender Identity Not on file Sexual Orientation Not on file documented as of this encounter Plan of Treatment Not on file documented as of this encounter Visit Diagnoses Diagnosis Vaginitis and vulvovaginitis, unspecified- Primary Gynecologic examination Gynecological examination Idiopathic scoliosis Scoliosis (and kyphoscoliosis), idiopathic documented in this encounter Care Teams [facility] Relationship Specialty Start Date End Date Lewis Allen MD [address] [place] [phone] PCP - General Family Practice 07/12/17 documented as of this encounter
--- OUTSIDE RECORDS SUMMARY | 2024-11-01 06:50 | XMS_ITS | Encounter Summary ---
Author Organization [facility] Address [address] [place] [address] Care Team Providers Care Automatic Fabric Cutter Name Role Phone Lewis Allen MD Primary Care Provider [phone] Encounter Details Date Type Department Care Team (Latest Contact Info) Description 11/04/2003 Outpatient Historical [facility] Family Medicine- [place] [address] [place] [address] Janelle Lopez NP NO ADDRESS ON FILE ABDOMINAL PAIN RUQ (Primary Dx); JOINT PAIN-UNSPEC Social History Tobacco Use Types Packs/Day Years Used Date Smoking Tobacco: Never Assessed Comments Unknown Sex and Gender Information Value Date Recorded Sex Assigned at Not on file Legal Sex Female 2:38 AM DRYING AND WINDING SUPERVISOR Gender Identity Not on file Sexual Orientation Not on file documented as of this encounter Plan of Treatment Not on file documented as of this encounter Visit Diagnoses Diagnosis Abdominal pain, right upper quadrant- Primary Pain in joint, site unspecified documented in this encounter Care Teams Automatic Fabric Cutter Relationship Specialty Start Date End Date Lewis Allen MD [address] [place] [phone] PCP - General Family Practice 07/12/17 documented as of this encounter
--- OUTSIDE RECORDS SUMMARY | 2024-11-01 06:50 | XMS_ITS | Encounter Summary ---
Author Organization [facility] Address [address] [place] [address] Care Team Providers Care Chinchilla Machine Operator Name Role Phone Lewis Allen MD Primary Care Provider [phone] Encounter Details Date Type Department Care Team (Latest Contact Info) Description 06/15/2004 Outpatient Historical [facility] Family Medicine [place] [address] [facility] [address] [place] [address] Leta Lomas, LOAN FUNDER [address] [place] [address] ESOPHAGEAL REFLUX (Primary Dx); ABDOMINAL PAIN EPIGASTRIC Social History Tobacco Use Types Packs/Day Years Used Date Smoking Tobacco: Never Assessed Comments Unknown Sex and Gender Information Value Date Recorded Sex Assigned at Not on file Legal Sex Female 2:38 AM CREDENTIALER Gender Identity Not on file Sexual Orientation Not on file documented as of this encounter Plan of Treatment Not on file documented as of this encounter Visit Diagnoses Diagnosis Esophageal reflux- Primary Abdominal pain, epigastric documented in this encounter Care Teams Chinchilla Machine Operator Relationship Specialty Start Date End Date Lewis Allen MD [address] [place] [phone] PCP - General Family Practice 07/12/17 documented as of this encounter
--- OUTSIDE RECORDS SUMMARY | 2024-11-01 06:50 | XMS_ITS | Encounter Summary ---
Author Organization [facility] Address [address] [place] [address] Care Team Providers Care Dumper Bailer Operator Name Role Phone Lewis Allen MD Primary Care Provider [phone] Encounter Details Date Type Department Care Team (Latest Contact Info) Description 11/18/2003 Outpatient Historical [facility] General Surgery [place] [address] [address] [address] [place] [address] [place] [address] [facility] [address] [place] [address] DIS OF GALLBLADDER NEC (Primary Dx) Social History Tobacco Use Types Packs/Day Years Used Date Smoking Tobacco: Never Assessed Comments Unknown Sex and Gender Information Value Date Recorded Sex Assigned at Not on file Legal Sex Female 2:38 AM APPLICATIONS PROGRAMMER ANALYST Gender Identity Not on file Sexual Orientation Not on file documented as of this encounter Plan of Treatment Not on file documented as of this encounter Visit Diagnoses Diagnosis Other specified disorder of gallbladder- Primary documented in this encounter Care Teams Dumper Bailer Operator Relationship Specialty Start Date End Date Lewis Allen MD [address] [place] [phone] PCP - General Family Practice 07/12/17 documented as of this encounter
--- OUTSIDE RECORDS SUMMARY | 2024-11-01 06:50 | XMS_ITS | Encounter Summary ---
Author Organization [facility] Address [address] [place] [address] Care Team Providers Care High School Combination Teacher Name Role Phone Lewis Allen MD Primary Care Provider [phone] Encounter Details Date Type Department Care Team (Latest Contact Info) Description 08/22/2003 Outpatient Historical [facility] Family Medicine- [place] [address] [place] [address] Janelle Lopez NP NO ADDRESS ON FILE URIN TRACT INFECTION NOS (Primary Dx); SKIN ANOMALY NEC Social History Tobacco Use Types Packs/Day Years Used Date Smoking Tobacco: Never Assessed Comments Unknown Sex and Gender Information Value Date Recorded Sex Assigned at Not on file Legal Sex Female 2:38 AM FRAMING SPECIALIST Gender Identity Not on file Sexual Orientation Not on file documented as of this encounter Plan of Treatment Not on file documented as of this encounter Visit Diagnoses Diagnosis Urinary tract infection, site not specified- Primary Other specified congenital anomaly of skin documented in this encounter Care Teams High School Combination Teacher Relationship Specialty Start Date End Date Lewis Allen MD [address] [place] [phone] PCP - General Family Practice 07/12/17 documented as of this encounter
--- OUTSIDE RECORDS SUMMARY | 2024-11-01 06:50 | XMS_ITS | Encounter Summary ---
Author Organization [facility] Address [address] [place] [address] Care Team Providers Care Operations Staff Specialist Security Name Role Phone Lewis Allen MD Primary Care Provider Reason for Referral * Outpatient Services (Routine) - Closed Specialty Diagnoses / Procedures Referred By Contac t Referred To Contact Radiology Diagnoses Other chest pain Procedures CT CHEST WO CONTRAST Rl Patten Sr., FNP [address] [place] [address] Phone: tel: fax: [facility] CT Scan [place] [address] [place] [address] Phone: tel: fax: Referral ID Status Reason Start Date Expiration Date V isits Requested Visits Authorized [id number] Closed [facility] View CTS to Schedule (SGF) 06/17/2014 07/18/2015 1 1 Encounter Details Date Type Department Care Team (Latest Contact Info) Description 06/17/2014 Ancillary Orders [facility] Centralized Scheduling [address] [facility] [address] [place] [address] Rl Patten Sr., FNP [address] [place], [place] [address] Other chest pain (Primary Dx) Social History Tobacco Use Types Packs/Day Years Used Date Smoking Tobacco: Every Day Cigarettes Alcohol Use Standard Drinks/Week Comments No 0 (1 standard drink = 0.6 oz pur e alcohol) Comments No Sex and Gender Information Value Date Recorded Sex Assigned at Not on file Legal Sex Female 2:38 AM CARE TRANSITION MGR Gender Identity Not on file Sexual Orientation Not on file Occupation Industry Job Start Date Job End Date Not on file Not on file Not on file Not on file documented as of this encounter Plan of Treatment Not on file documented as of this encounter Results * CT CHEST WO CONTRAST (06/18/2014 10:17 AM CDT) Anatomical Region Laterality Modality Chest Computed Tomogra phy 06/18/2014 10:1 2 AM CDT Narrative 06/18/2014 11:13 AM CDT PROCEDURE CHEST CT, IV noncontrast, June 20 in TECHNIQUE Noncontrast helical axial CT was obtained from the base of the neck into the abdomen and imaged at 5 mm increments for 62 axial images. Sagittal and coronal reconstructions are also obtained. DESCRIPTION On lung window imaging the lungs appear clear. No infiltrate or atelectasis is seen. No pleural effusion is seen. No pulmonary nodules are identified. Mediastinal window settings show no mediastinal mass or adenopathy. No hilar adenopathy is appreciated on noncontrast study. No coronary atherosclerotic calcification is seen. The chest wall appears intact without axillary adenopathy. The partially visualized liver, spleen, and pancreas appear unremarkable. Gallbladder is surgically absent with metallic clips in the gallbladder fossa. The adrenal glands and visualized portions of the upper poles the kidneys appear unremarkable. The stomach is nondistended. There is moderate gas in the visualized portion of the the colon. IMPRESSION 1. no acute changes of the chest seen 2. no pulmonary or mediastinal masses or adenopathy seen Procedure Note Anuj Abebe MD - 06/18/[address], IV noncontrast, June 20 in TECHNIQUE Noncontrast helical axial CT was obtained from the base of the neck into the abdomen and imaged at 5 mm increments for 62 axial images. Sagittal and coronal reconstructions are also obtained. DESCRIPTION On lung window imaging the lungs appear clear. No infiltrate or atelectasis is seen. No pleural effusion is seen. No pulmonary nodules are identified. Mediastinal window settings show no mediastinal mass or adenopathy. No hilar adenopathy is appreciated on noncontrast study. No coronary atherosclerotic calcification is seen. The chest wall appears intact without axillary adenopathy. The partially visualized liver, spleen, and pancreas appear unremarkable. Gallbladder is surgically absent with metallic clips in the gallbladder fossa. The adrenal glands and visualized portions of the upper poles the kidneys appear unremarkable. The stomach is nondistended. There is moderate gas in the visualized portion of the the colon. IMPRESSION 1. no acute changes of the chest seen 2. no pulmonary or mediastinal masses or adenopathy seen us Rl Patten Sr., TAX MAP TECHNICIAN CT ORDERABLES F inal Result documented in this encounter Visit Diagnoses Diagnosis Other chest pain- Primary Other chest pain documented in this encounter Care Teams Operations Staff Specialist Security Relationship Specialty Start Date End Date Lewis Allen MD [address] [place] [phone] PCP - General Family Practice 07/12/17 documented as of this encounter
--- OUTSIDE RECORDS SUMMARY | 2024-11-01 06:50 | XMS_ITS | Encounter Summary ---
Author Organization [facility] Address [address] [place] [address] Care Team Providers Care Automatic Profile Sander Operator Name Role Phone Lewis Allen MD Primary Care Provider [phone] Encounter Details Date Type Department Care Team (Latest Contact Info) Description 08/01/2003 Outpatient Historical [facility] Family Medicine- [address] [address] [place] [address] Janelle Lopez NP NO ADDRESS ON FILE MED EXAM NEC-ADMIN PURP (Primary Dx); CONTRACEPTIVE MANGMT NOS Social History Tobacco Use Types Packs/Day Years Used Date Smoking Tobacco: Never Assessed Comments Unknown Sex and Gender Information Value Date Recorded Sex Assigned at Not on file Legal Sex Female 2:38 AM EMERGENCY DETAIL DRIVER Gender Identity Not on file Sexual Orientation Not on file documented as of this encounter Plan of Treatment Not on file documented as of this encounter Visit Diagnoses Diagnosis Other general medical examination for administrative purposes- Primary Unspecified contraceptive management documented in this encounter Care Teams Automatic Profile Sander Operator Relationship Specialty Start Date End Date Lewis Allen MD [address] [place] [phone] PCP - General Family Practice 07/12/17 documented as of this encounter
--- OUTSIDE RECORDS SUMMARY | 2024-11-01 06:50 | XMS_ITS | Encounter Summary ---
Author Organization [facility] Address [address] [place] [address] Care Team Providers Care Biodiesel Plant Operations Engineer Name Role Phone Lewis Allen MD Primary Care Provider [phone] Reason for Referral * Outpatient Services (Routine) - Closed Specialty Diagnoses / Procedures Referred By Contac t Referred To Contact Radiology Diagnoses Chest pain Back pain Arm pain Procedures MRI THORACIC WO CONTRAST Rl Patten Sr., FNP [address] [place] [id number] Phone: tel: fax: [facility] [address] [place] [address] Phone: tel: fax: Referral ID Status Reason Start Date Expiration Date V isits Requested Visits Authorized [id number] Closed [facility] View CTS to Schedule (SGF) 06/24/2014 07/23/2014 1 1 Encounter Details Date Type Department Care Team (Latest Contact Info) Description 06/24/2014 Ancillary Orders [facility] Centralized Scheduling [address] [place] [address] Rl Patten Sr., FNP [address] [place] [address] Chest pain (Primary Dx); Back pain; Arm pain Social History Tobacco Use Types Packs/Day Years Used Date Smoking Tobacco: Every Day Cigarettes Alcohol Use Standard Drinks/Week Comments No 0 (1 standard drink = 0.6 oz pur e alcohol) Comments No Sex and Gender Information Value Date Recorded Sex Assigned at Not on file 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 Exam: MRI THORACIC WO CONTRAST Date/Time of Exam: Jun 30, 2014 12:49:11 PM Reason For Exam: Chest pain, unspecified. Technique: MRI of the thoracic spine was performed without the administration of intravenous contrast. Findings: Normal height and alignment of the thoracic vertebra. Several very mild mid thoracic disc bulges or protrusions without significant central canal or foraminal narrowing. The cord is unremarkable. The paraspinal soft tissues are unremarkable. Impression: 1. Very mild degenerative changes. BILLY/roland - uploaded from [facility]- Narrative Procedure Note Kin Martinez MD - 06/30/2014 IMPRESSION IMPRESSION: See report below. Exam: MRI THORACIC WO CONTRAST Date/Time of Exam: Jun 30, 2014 12:49:11 PM Reason For Exam: Chest pain, unspecified. Technique: MRI of the thoracic spine was performed without the administration of intravenous contrast. Findings: Normal height and alignment of the thoracic vertebra. Several very mild mid thoracic disc bulges or protrusions without significant central canal or foraminal narrowing. The cord is unremarkable. The paraspinal soft tissues are unremarkable. Impression: 1. Very mild degenerative changes. BILLY/roland - uploaded from [facility]- us Rl Patten Sr., EMPLOYEE OPERATIONS EXAMINER MR ORDERABLES F inal Result documented in this encounter Visit Diagnoses Diagnosis Chest pain- Primary Chest pain, unspecified Back pain Backache, unspecified Arm pain Pain in limb Chest pain Chest pain, unspecified Back pain Backache, unspecified Arm pain Pain in limb documented in this encounter Care Teams Biodiesel Plant Operations Engineer Relationship Specialty Start Date End Date Lewis Allen MD [address] [place] [phone] PCP - General Family Practice 07/12/17 documented as of this encounter
--- OUTSIDE RECORDS SUMMARY | 2024-11-01 06:50 | XMS_ITS | Encounter Summary ---
Author Organization [facility] Address [address] [place] [address] Care Team Providers Care Fashion Styling Intern Name Role Phone Lewis Allen MD Primary Care Provider [phone] Encounter Details Date Type Department Care Team (Latest Contact Info) Description 02/18/2003 Outpatient Historical [facility] Family Medicine- [address] [address] [place] [employer] [address] Zhou Adames, NO ADDRESS ON FILE ACUTE PHARYNGITIS (Primary Dx); ACUTE BRONCHITIS Social History Tobacco Use Types Packs/Day Years Used Date Smoking Tobacco: Never Assessed Comments Unknown Sex and Gender Information Value Date Recorded Sex Assigned at Not on file 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
--- OUTSIDE RECORDS SUMMARY | 2024-11-01 06:50 | XMS_ITS | Encounter Summary ---
Author Organization [facility] Address [address] [place] [address] Care Team Providers Care Canal Driver Name Role Phone Lewis Allen MD Primary Care Provider [phone] Encounter Details Date Type Department Care Team (Latest Contact Info) Description 08/22/2003 Outpatient Historical [facility] Family Medicine- [place] [address] [place] [address] Janelle Lopez NP NO ADDRESS ON FILE VENEREAL DIS CONTACT (Primary Dx) Social History Tobacco Use Types Packs/Day Years Used Date Smoking Tobacco: Never Assessed Comments Unknown Sex and Gender Information Value Date Recorded Sex Assigned at Not on file 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
--- OUTSIDE RECORDS SUMMARY | 2024-11-01 06:50 | XMS_ITS | Clinical Summary ---
Author Organization [facility] Address [address] [place] [address] Phone Care Team Providers Care Educational Therapy Teacher Name Role Phone Lewis Allen MD Primary Care Provider [phone] Allergies No known active allergies Medications albuterol HFA 90 mcg inhaler Take 2 Puffs by inhalation every 6 hours as needed for Shortness of Breath. Active albuterol (PROVENTIL,VENTOL IN) 2.5 mg/0.5 mL Solution for Nebulization Take 2.5 mg by inhalation one time only. Active cpap medical investigator Active fluticasone-salme terol (ADVAIR DISKUS) 250-50 mcg/dose disk inhaler Take 1 Puff by inhalation 2 times daily. Active lisinopril (PRINIVIL) 10 mg tablet Take 10 mg by mouth daily. Active tiotropium (SPIRIVA) 18 mcg capsule Take 18 mcg by inhalation daily. Active ibuprofen (MOTRIN) 200 mg tablet Take 4 Tablets (800 mg) by mouth every 8 hours as needed for Pain. 1 Active clindamycin (CLEOCIN) 150 mg capsule Take this morning upon awakening. 2 Capsule 1 Active clindamycin (CLEOCIN) 300 mg Capsule Take 1 Capsule (300 mg) by mouth 4 times daily. 30 Capsule 1 Active sulfamethoxazole- trimethoprim (BACTRIM DS) 800-160 mg tablet Take 1 Tablet by mouth 2 times daily. 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 Gender Identity Not on file Sexual Orientation Not on file Occupation Industry Job Start Date Job End Date Not on file Not on file Not on file Not on file Last Filed Vital Signs Vital Sign Reading Time Taken Comments Blood Pressure 130/84 08/14/2020 12:25 AM CDT Pulse 99 06/23/2018 11:21 AM CDT Temperature 36.6 C (97.8 F) 08/13/2020 9:49 PM CDT Respiratory Rate 18 08/14/2020 12:2 5 AM CDT Oxygen Saturation 97% 08/14/2020 12: 25 AM CDT Inhaled Oxygen Concentration - - Weight 90.6 kg (199 lb 11.8 oz) 08/13/2020 9:49 PM CDT Height 156.5 cm (5' 1.6 ) 08/13/2020 9:49 PM CDT Body Mass Index 37.01 08/13/2020 9:49 PM CDT Plan of Treatment Health Maintenance Due Date Last Done Comments HPV VACCINES (1 - 3-dose series) 2002 DTAP/TDAP/TD VACCINES (1 - Tdap) 2006 HPV/Cotest (21-29) 01/15/2008 CERVICAL CANCER SCREENING 2017 HPV/Cotest (30-65) 2017 PAP SMEAR 2017 INFLUENZA VACCINE (#1) 2024 HEPATITIS B VACCINES Completed 08/08/2000, 04/11/2000, 03/10/2000 Insurance [place] [address] [id number] Care Teams Educational Therapy Teacher Relationship Specialty Start Date End Date Lewis Allen MD [address] [place] [phone] PCP - General Family Practice 07/12/17
--- OUTSIDE RECORDS SUMMARY | 2024-11-01 06:50 | XMS_ITS | Encounter Summary ---
Author Organization [facility] Address [address] [place] [address] Care Team Providers Care Auto Body Mechanic Apprentice Name Role Phone Lewis Allen MD Primary Care Provider [phone] Encounter Details Date Type Department Care Team (Latest Contact Info) Description 11/19/2004 Outpatient Historical [facility] Family Medicine [place] [address] [facility] [address] [place] [address] Janelle Lopez NP NO ADDRESS ON FILE CONTRACEPTIVE MANGMT NEC (Primary Dx) Social History Tobacco Use Types Packs/Day Years Used Date Smoking Tobacco: Never Assessed Comments Unknown Sex and Gender Information Value Date Recorded Sex Assigned at Not on file 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
--- OUTSIDE RECORDS SUMMARY | 2024-11-01 06:50 | XMS_ITS | Encounter Summary ---
Author Organization [facility] Address [address] [place] [address] Care Team Providers Care Product Safety Engineer Name Role Phone Lewis Allen MD Primary Care Provider [phone] Encounter Details Date Type Department Care Team (Latest Contact Info) Description 03/21/2006 Outpatient Historical [facility] Family Medicine [place] [address] [facility] [address] [place] [address] Janelle Lopez NP NO ADDRESS ON FILE Contact Dermatitis and Other Eczema, due to Unspecified Cause (Primary Dx); Dermatophytosis of the Body; Examination or Test, Positive Result Social History Tobacco Use Types Packs/Day Years Used Date Smoking Tobacco: Never Assessed Comments Unknown Sex and Gender Information Value Date Recorded Sex Assigned at Not on file Legal Sex Female 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
--- OUTSIDE RECORDS SUMMARY | 2024-11-01 06:50 | XMS_ITS | Encounter Summary ---
Author Organization [facility] Address [address] [place] [address] Care Team Providers Care Entry Level Electrician Name Role Phone Lewis Allen MD Primary Care Provider [phone] Encounter Details Date Type Department Care Team (Late st Contact Info) Description 03/23/2004 Outpatient Historical [facility] Justin Jack MD NO ADDRESS ON FILE Social History Tobacco Use Types Packs/Day Years Used Date Smoking Tobacco: Never Assessed Comments Unknown Sex and Gender Information Value Date Recorded Sex Assigned at Not on file Legal Sex Female 2:38 AM NEGATIVE TURNER Gender Identity Not on file Sexual Orientation Not on file documented as of this encounter Plan of Treatment Not on file documented as of this encounter Visit Diagnoses Not on filedocumented in this encounter Care Teams Entry Level Electrician Relationship Specialty Start Date End Date Lewis Allen MD [address] [place] [phone] PCP - General Family Practice 07/12/17 documented as of this encounter
--- OUTSIDE RECORDS SUMMARY | 2024-11-01 06:50 | XMS_ITS | Encounter Summary ---
Author Organization [facility] Address [address] [place] [address] Care Team Providers Care Transfer Driver Name Role Phone Lewis Allen MD Primary Care Provider Encounter Details Date Type Department Care Team (Latest Contact Info) Description 02/06/2004 Outpatient Historical [facility] Family Medicine [place] [address] [facility] [address] [place] [address] Janelle Lopez NP NO ADDRESS ON FILE ACUTE PHARYNGITIS (Primary Dx); ACUTE BRONCHITIS; ASTHMA UNSPECIFIED Social History Tobacco Use Types Packs/Day Years Used Date Smoking Tobacco: Never Assessed Comments Unknown Sex and Gender Information Value Date Recorded Sex Assigned at Not on file 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
--- OUTSIDE RECORDS SUMMARY | 2024-11-01 06:50 | XMS_ITS | Encounter Summary ---
Author Organization [facility] [facility] Address [address] [place] [address] Care Team Providers Care Foot Drill Operator Name Role Phone Lewis Allen MD Primary Care Provider [phone] Encounter Details Date Type Department Care Team (Latest Contact Info) Description 10/15/2003 Outpatient Historical [facility] [address] [place] [address] 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
== END 2024-10-31 19:23 | disposition home or self-care (01) ==
PROVIDERS: Emergency Provider Physician Assistant; PCP Family Medicine
DX: E11.65 Type 2 diabetes mellitus with hyperglycemia (principal); J44.9 Chronic obstructive pulmonary disease, unspecified; I10 Essential (primary) hypertension; R74.01 Elevation of levels of liver transaminase levels; Z79.4 Long term (current) use of insulin; Z79.84 Long term (current) use of oral hypoglycemic drugs
CPT/HCPCS: 36415; 36416; 80053; 80074; 82009; 82010; 82803; 82962; 83735; 84100; 85025; 96374; 99284; J1815; J7030; J9999

== ENCOUNTER 2024-11-21 07:08 | Day surgery (SDC) | payer MEDICAID, SELFPAY ==
[2024-11-21] VITALS (11 sets, daily range): BP systolic 115–145; BP diastolic 81–112; PULSE 84–100; RESP 16–22; TEMP 36.1–36.4; O2SAT 86–98
--- NOTE | 2024-11-21 07:31 | W.PM.OPSFHP ---
Same Day Surgery H&P Indication for Procedure/HPI DATE OF PROCEDURE: November 21, 2024 CHIEF COMPLAINT/INDICATIONFOR SURGICAL PROCEDURE: Left carpal tunnel syndrome, left cubital tunnel syndrome PREOP DIAGNOSIS: Left carpal tunnel syndrome, left cubital tunnel syndrome PLANNED PROCEDURE: Operation Date: 11/21/24 08:10 Proposed Procedures p LEFT Carpal Tunnel Release(Left) - David Love, DO s LEFT Cubital Tunnel Release(Left) - David Love, DO s POSSIBLE LEFT Ulnar Nerve Transposition(Left) - David Diana, DO Medications/Allergies* Home Medications ?Medication ?Instructions ?Recorded ?Confirmed ?Type budesonide-formoterol HFA 80 1 puff inhalation BID 10/31/24 11/20/24 History mcg-4.5 mcg/actuation aerosol inhaler (Symbicort) venlafaxine 75 mg capsule,extended 75 mg PO DAILY 10/31/24 11/20/24 History release 24 hr dulaglutide 1.5 mg/0.5 mL 1.5 mg SUBCUT .WKLY 11/20/24 11/20/24 History subcutaneous pen injector (Trulicity) insulin glargine 100 unit/mL (3 60 unit SUBCUT BID 11/20/24 11/21/24 History mL) subcutaneous pen (Lantus Solostar U-100 Insulin) Allergies/Adverse Reactions Allergy/AdvReac Type Severity Reaction Status Date / Time gabapentin Allergy Severe unknown Verified 11/20/24 13:25 amitriptyline Allergy ADR-slurred Verified 11/20/24 13:25 words Pertinent History/Comorbid Conditions* Medical History (Updated 11/08/24 @ 00:00 by KILO Ruano) Diabetes Essential hypertension COPD (chronic obstructive pulmonary disease) Saw Dr. Pan at [facility] - Doesn't want to see again Surgical History (Updated 08/16/24 @ 09:49 by Lewis Allen MD) History of carpal tunnel surgery of right wrist 07/2024 - Love Hx of cholecystectomy Hx of hysterectomy with BLO Family History (Updated 05/16/22 @ 09:28 by Celestine Latham NP) CAD (coronary artery disease) Father Cancer Mother cervical cancer Social History Smoking and tobacco/nicotine status: current every day tobacco/nicotine user cigarettes Packs smoked per day: 0.25 Current occupational status: employed Current occupation: [employer] Pertinent Exam Findings alert, oriented x 3, operative site marked and procedure specific exam findings Please refer to detailed orthopedic examination on 09/19/2024 listed below: Left Hand exam-positive Tinel's and positive Phalen's test. mild thenar atrophy and thenar muscle weakness. Full range of motion in fingers and wrist and fingers are warm and well-perfused with normal cap refill under 2 seconds. Radial pulse 2+, intrinsic muscle weakness noted. Left Elbow exam-positive Tinel's test Recommendations Risks and benefits of procedure reviewed and Patient/family agree to proceed Surgery/Procedure today Other Plans: Plan to proceed to the OR today for left carpal tunnel release and left cubital tunnel release with possible ulnar nerve transposition. She has had good results with a right carpal tunnel release she continues to have positive median nerve entrapment on the left wrist but she does on clinical examination as well as with intrinsic weakness on the left hand have positive findings for cubital tunnel syndrome we talked about her options and at this point in time as previously done in our last office visit she elects to proceed with surgical invention for left carpal tunnel release and left cubital tunnel release with possible nerve transposition. Patient understands Anzemet's procedure risk benefits complication alternatives surgery through shared decision-making patient like to proceed with surgical invention. All questions answered this time. Coding Level of Care Code Acute Code for Jaquelintammy Camara
[2024-11-21] MEDS: acetaminophen 1,000 MG/100 ML PIGGYBACK 400 MG IV (07:38)
--- NOTE | 2024-11-21 07:55 | ANES.PREANE2 ---
Pre-Anesthetic Assessment Height/Weight: Height 1.57 m Weight 85.729 kg Temp Pulse Resp BP Pulse Ox O2 Del Method 97.5 F L 99 16 145/112 98 Room Air 11/21/24 07:20 11/21/24 07:20 11/21/24 07:20 11/21/24 07:20 11/21/24 07:20 11/21/24 07:20 Preop Diagnosis: Left carpal tunnel syndrome, left cubital tunnel syndrome Operation Date: 11/21/24 08:10 Proposed Procedures p LEFT Carpal Tunnel Release(Left) - David Diana, DO s LEFT Cubital Tunnel Release(Left) - David Diana, DO s POSSIBLE LEFT Ulnar Nerve Transposition(Left) - David Claiborne, DO Familial anesthetic complications: None Was Beta Darlene taken within 24 hours: N/A Was Clonidine taken within 24 hours: N/A Last intake: Intake Last Liquid Date 11/20/24 Last Liquid Time 23:30 Last Solid Date 11/20/24 Last Solid Time 21:00 Social No alcohol and No tobacco Exam alert, oriented x 3, clear to auscultation bilaterally and regular rate & rhythm Airway Mallampati: Class II Dentition: full Pulmonary Chronic Obstructive Pulmonary Disease Metabolic Diabetes Mellitus and Morbid Obesity Anesthetic Plan ASA status: 3 Anesthesia: General and Regional (specify below) Risk of > 500 ml blood loss (7ml/kg in children): No Medications/Allergies Home Medications ?Medication ?Instructions ?Recorded ?Confirmed ?Last Taken ?Type blood sugar diagnostic (True #100 ea 04/26/23 11/11/24 07/11/24 20:30 Rx Metrix Glucose Test Strip) cyanocobalamin (vitamin B-12) 500 500 mcg PO DAILY #30 tabs 04/26/23 11/20/24 11/19/24 Rx mcg tablet (Vitamin B-12) thiamine HCl (vitamin B1) 100 mg 100 mg PO DAILY #30 tabs 04/26/23 11/20/24 11/20/24 Rx tablet blood sugar diagnostic (OneTouch #100 ea 04/27/23 11/11/24 07/11/24 20:30 Rx Ultra Test strips) blood-glucose meter (OneTouch #1 ea 04/27/23 11/11/24 07/11/24 20:30 Rx Ultra2 Meter) lancets 33 gauge (CrystalCommerceTouch Delica #100 ea 04/27/23 11/11/24 07/11/24 20:30 Rx Plus Lancet) pen needle, diabetic 31 gauge x #100 ea 03/04/24 11/11/24 07/11/24 20:30 Rx 5/16 (Pentips Pen Needle) albuterol sulfate 90 mcg/actuation 2 puff inhalation Q6H PRN 04/15/24 11/20/24 11/19/24 Rx aerosol inhaler shortness of breath or wheezing #8.5 grams metformin 500 mg tablet 500 mg PO BID #60 tabs 04/15/24 11/20/24 11/20/24 Rx atorvastatin 20 mg tablet 20 mg PO DAILY #30 tabs 08/16/24 11/20/24 11/20/24 Rx blood-glucose sensor (Dexcom G6 #3 ea 08/16/24 11/11/24 Unknown Rx Sensor device) blood-glucose transmitter (Dexcom #1 ea 08/16/24 11/11/24 Unknown Rx G6 Transmitter device) cholecalciferol (vitamin D3) 50 100 mcg (2 x 50 mcg (2,000 unit)) 08/16/24 11/20/24 11/19/24 Rx mcg (2,000 unit) capsule PO DAILY #60 caps quetiapine 25 mg tablet (Seroquel) 25 mg PO DAILY #30 tabs 08/16/24 11/20/24 11/18/24 Rx blood-glucose,frame hand,cont #2 ea 10/30/24 11/11/24 Unknown Rx (Dexcom G6 Barytes Grinder) budesonide-formoterol HFA 80 1 puff inhalation BID 10/31/24 11/20/24 11/20/24 History mcg-4.5 mcg/actuation aerosol inhaler (Symbicort) pen needle, diabetic 31 gauge x #100 ea 10/31/24 10/31/24 Unknown Rx 5/16 (TechLITE Pen Needle) venlafaxine 75 mg capsule,extended 75 mg PO DAILY 10/31/24 11/20/24 11/18/24 History release 24 hr insulin lispro 100 unit/mL 15 unit (0.15 mL) SUBCUT .ACHS #15 11/04/24 11/21/24 11/21/24 Rx subcutaneous pen (Humalog KwikPen mL (U-100) Insulin) potassium chloride 10 mEq 10 meq PO DAILY #30 tabs 11/04/24 11/20/24 11/20/24 Rx tablet,extended release (Klor-Con) dulaglutide 1.5 mg/0.5 mL 1.5 mg SUBCUT .WKLY 11/20/24 11/20/24 11/04/24 History subcutaneous pen injector (Trulicity) insulin glargine 100 unit/mL (3 60 unit SUBCUT BID 11/20/24 11/21/24 11/21/24 History mL) subcutaneous pen (Lantus Solostar U-100 Insulin) hydrocodone 5 mg-acetaminophen 325 1 tab PO Q6H PRN pain 5 days #20 11/21/24 Unknown Rx mg tablet tabs Allergies Allergy/AdvReac Type Severity Reaction Status Date / Time gabapentin Allergy Severe unknown Verified 11/20/24 13:25 amitriptyline Allergy ADR-slurred Verified 11/20/24 13:25 words Current Medications Generic Name Dose Route Start Last Admin Trade Name Freq PRN Reason Stop Dose Admin Sodium Chloride 1,000 mls @ 30 mls/hr 11/21/24 07:15 11/21/24 07:34 Sodium Chloride 0.9% IV 11/22/24 07:14 30 mls/hr .Q24H YARI Administration PFSH Anesthesia Medical History (Updated 11/08/24 @ 00:00 by KILO Ruano) Diabetes Essential hypertension COPD (chronic obstructive pulmonary disease) Saw Dr. Pan at [facility] - Doesn't want to see again Surgical History History of carpal tunnel surgery of right wrist 07/2024 - Diana Hx of cholecystectomy Hx of hysterectomy with BLO Family History Father CAD (coronary artery disease) Mother Cancer cervical cancer Social History (Updated 11/04/24 @ 17:14 by Lewis Allen MD) Smoking and tobacco/nicotine status: current every day tobacco/nicotine user cigarettes Packs smoked per day: 0.25 Current occupational status: employed Current occupation: [employer] Anesthesia Procedures Nerve Block Nerve Block 1: Main Anesthesia: general anesthesia Time Out Performed: Yes Consent: requested by attending/covering physician, from patient, from other, risks and benefits reviewed and patient agrees to proceed Nerve block location: supraclavicular (L) Anesthesia monitors applied: pulse oximetry, EKG, BP cuff and oxygen Nerve block position: semi sitting Anesthetic Used: ropivicaine 0.5% (25 ml) and with decadron (4 mg) Ultrasound used to: recognize landmarks, visualize and ID brachial plexus, in supraclavicular region and visualize and ID interscalene groove Interscalene/Femoral BLK: 2 stimuplex 22 g needle used for position and inplane approach, visualize local anesthetic spread and no vascular puncture identified Injection: neg aspiration of heme Patient Tolerated Procedure: well Complications: none
[2024-11-21] MEDS: ceFAZolin 2,000 MG in sodium chloride 0.9% (plus) 50 ML 100 MG IV (08:25)
--- NOTE | 2024-11-21 09:15 | P.OP_ITS ---
Operative Report Date of procedure: November 21, 2024 Surgeon: David Ortiz DO Client Services Analyst: Lewis Ortiz PA-C: PA was necessary for assistance in this case with hand positioning to execute the procedure, retraction and protection of neurovascular structures as well as to assist with wound closure and dressing application. Procedure: Preop Dx Left carpal tunnel syndrome Left cubital tunnel syndrome Postop Diagnosis: Same Procedure done: left carpal tunnel release left?cubital?tunnel tunnel release (ulnar nerve decompression at elbow) Surgeon: David Ortiz DO Estimated blood loss: 10 mL Tourniquet? 16 minutes IV fluids: 400 mL Complications: None Findings: See operative report narrative Condition: stable Disposition: same day Brief History: Patient's been seen and worked up in the outpatient setting and findings consistent with preoperative diagnosis.? Patient has left carpal tunnel syndrome as well as left?cubital?tunnel syndrome which has been worked up in the outpatient setting has physical exam findings consistent with this as well as confirmatory nerve conduction/EMG nerve conduction study consistent with diagnosis.? Patient's failed conservative treatment.? As result through shared decision making agreed to proceed with? left carpal tunnel and left?cubital?tunnel release with possible ulnar nerve transposition. we talked about treatment options as far as nonoperative and operative intervention.? Understands risk benefits complication alternatives surgical nonsurgical treatment options.? Understanding risks pt agrees to proceed with surgical intervention. Understanding these risks pt agrees to proceed with surgery.? Consent obtained in preop. Procedure: Patient seen evaluate in the preoperative holding area.? Consent was reviewed and signed with patient.? Correct extremity marked.? Patient seen evaluated by anesthesia department once cleared for surgery was then taken back to the operative suite placed in supine position all bony prominences well-padded patient properly secured to bed.? left upper extremity placed onto armboard.? Nonsterile tourniquet applied left upper arm.? Patient then underwent anesthesia per the anesthesia department.? Patient's left upper extremity was then prepped and draped in standard orthopedic fashion.? Final timeout performed.? Patient received appropriate preoperative antibiotics. Esmarch was used exsanguinate the left upper extremity.? Tourniquet was insufflated to 250 mmHg. I started with the carpal tunnel release first.? I made a standard open carpal tunnel release starting with the distal most extent in the palm at the Angel's cardinal line and the incision line was made in line with the fourth ray and ended just distal to the wrist crease.? Sharp scalpel incision was made through skin and subcutaneous tissue I then utilizing self retainer then began to dissect with dissection scissors split longitudinally the palmar fascia.? Next I then utilizing my assistant statistician Keith retractors subsequently utilizing scalpel feathered through the palmaris brevis as well as through the transverse carpal ligament distally.? Once I encountered the floor of the transverse carpal ligament and entered into the carpal tunnel I then switched to dissection scissors.? Carefully released the distal extent of the transverse carpal ligament to the palmar fat.? Care was to protect the recurrent branch and not injured this during this part of the case.? Next I then placed a Corsicana underneath the transverse carpal ligament proximally to protect the nerve in the carpal tunnel contents.? And then I subsequently under loupe magnification utilize my dissection scissors to release the transverse carpal ligament into the antebrachial fascia under direct visualization with care to keep my scissors with a curved ulnarly away from the palmar cutaneous branch.? The transverse carpal was then completely decompressed proximally and a Corsicana was then placed both distally and proximally throughout the carpal tunnel and had complete decompression of the nerve.? The nerve did appear to have hourglass shape as it went through the carpal tunnel.? With significant irritation noted around the nerve.? No masses were noted within the contents of the carpal tunnel.? This completed the carpal tunnel release and then I subsequently irrigated the wound bed and placed a wet Ray-Martina into the incision for later closure. Next marked out the landmarks of the left elbow of the medial epicondyle and olecranon and made a curvilinear incision following the course of the ulnar ner ve at the medial aspect of the elbow.? Sharp scalpel incision was made through skin and subcutaneous tissue.? Next I switched to Littler dissection scissors and spread in plane of the medial antebrachial cutaneous nerve branching which was protected throughout this part of the dissection.? Then I directly came down over the fascia and identified the 2 heads of the FCU fascia and split this left in the middle and subsequently identified my ulnar nerve distally.? This was then completely released distally under direct visualization and loupe magnification.? Once the nerve was then identified I then subsequently tracked this proximally and released this through Whittaker's ligament as well as complete decompression of the nerve proximally all the way past the intermuscular septum.? The nerve was completely released and decompressed both proximally and distally.? Ulnar nerve neurolysis performed and completed both proximally and distally with dissection scissors.? I then took the elbow through range of motion and there was no instability or subluxating of the ulnar nerve.? This completed?cubital?tunnel release.? ?Next the wound bed was thoroughly irrigated.? Tourniquet was deflated.? H emostasis was satisfactory at the?cubital?tunnel release surgery site. I then inspected the carpal tunnel incision and this was found to have satisfactory hemostasis and all this was maintained through bipolar electrocautery.? At this point time I sequentially closed?cubital?tunnel site with 3-0 Vicryl suture in a running horizontal mattress nylon stitch.? ? The carpal tunnel release surgery was then closed in standard interrupted mattress fashion.? Dressing was Xeroform 4 x 4's ABD Curlex soft roll and an Carlos wrap has a bulky soft dressing. Patient was then awakened from anesthesia and taken to PACU in stable condition. Disposition: Patient taken to PACU in stable condition recovering well.? Patient will receive appropriate discharge instructions as well as pain medication postoperatively.? We will follow-up with me in the office in 2 weeks.? Patient understands agrees with current plan.? All questions answered.? pt understands if any questions or concerns and contact the office for follow-up appointment.
--- NOTE | 2024-11-21 10:15 | P.BOP_ITS ---
Date of Procedure: [November 21, 2024] Surgeon: [Dr. Ortiz DO] Correspondence Specialist(s): [Lewis Ortiz PA-C] Procedure(s) performed: [Left carpal tunnel release and left cubital tunnel release] Findings of the procedure(s): [Left carpal tunnel syndrome and left cubital tunnel syndrome. No ulnar nerve transposition needed since ulnar nerve did not sublux with range of motion. Procedure went well and his plan] Estimated blood loss: [10 mL] Specimen(s) removed: [N/A] Post-operative diagnosis: [Left carpal tunnel syndrome and left cubital tunnel syndrome]
--- NOTE | 2024-11-21 10:17 | PM.PACU ---
PACU note Narrative: Patient is 39 female who just underwent a left carpal tunnel left cubital tunnel release. Patient transferred to PACU in stable condition. Pain is well controlled. Dressing on hand is dry and in place. Patient's fingers are warm and well-perfused. normal cap refill under 2 seconds. Unable to perform any further assessment on sensation or motor due to residual block Exam: awake Disposition: discharged
--- NOTE | 2024-11-21 15:34 | ANE.PACU2 ---
Inpatient post-anesthesia follow up: Airway intact: Yes Vital signs: Temperature 97.0 F Pulse Rate 84 Respiratory Rate 18 Blood Pressure 123/82 Pulse Oximetry 86 Oxygen Delivery Me thod Room Air Oxygen Flow Rate 8 Fraction of Inspir ed Oxygen Hydration adequate: Yes Nausea and vomiting: No Pain level: 1 Mental status: Baseline
== END 2024-11-21 10:53 | disposition home or self-care (01) ==
PROVIDERS: PCP Family Medicine; Visit Provider Student in an Organized Health Care Education/Training Program
PROC: (CPT 64721; principal; 2024-11-21 08:10)
PROC: (CPT 64718; 2024-11-21 08:10)
DX: G56.02 Carpal tunnel syndrome, left upper limb (principal); G56.22 Lesion of ulnar nerve, left upper limb; E11.9 Type 2 diabetes mellitus without complications; I10 Essential (primary) hypertension; J44.9 Chronic obstructive pulmonary disease, unspecified; Z79.4 Long term (current) use of insulin; F17.210 Nicotine dependence, cigarettes, uncomplicated; E66.01 Morbid (severe) obesity due to excess calories; Z68.34 Body mass index [BMI] 34.0-34.9, adult; Z79.84 Long term (current) use of oral hypoglycemic drugs
CPT/HCPCS: 64718; 64721; 36416; 82962; J0131; J0690; J1100; J1885; J2250; J2405; J2704; J2795; J3010; J7030; J9999

== ENCOUNTER → 2024-12-10 14:50 | Outpatient (BNVA) | payer MEDICAID, SELFPAY | PROVIDERS: PCP Family Medicine; Visit Provider Physician Assistant | DX: Z98.890 Other specified postprocedural states (principal) | CPT/HCPCS: 99024 ==

== ENCOUNTER → 2024-12-27 09:12 | Outpatient (BNVA) | payer MEDICAID, SELFPAY | PROVIDERS: PCP Family Medicine; Visit Provider Family Medicine | DX: Z51.81 Encounter for therapeutic drug level monitoring (principal); E11.9 Type 2 diabetes mellitus without complications; R10.9 Unspecified abdominal pain; R30.0 Dysuria; N39.0 Urinary tract infection, site not specified | CPT/HCPCS: 80053; 81000; 83036; 85025; 86141; 87086 ==

== ENCOUNTER 2024-12-31 13:53 | Emergency (ER) | payer MEDICAID, SELFPAY ==
--- OUTSIDE RECORDS SUMMARY | 2024-12-31 13:58 | XMS_ITS | Encounter Summary ---
Author Organization [facility] Address [address] [place] [address] Care Team Providers Care Securities Sales Associate Name Role Phone Lewis Allen MD Primary Care Provider [phone] Encounter Details Date Type Department Care Team (Latest Contact Info) Description 08/01/2003 Outpatient Historical [facility] Family Medicine- [place] [address] [place] [address] Janelle Lopez NP NO ADDRESS ON FILE MED EXAM NEC-ADMIN PURP (Primary Dx); CONTRACEPTIVE MANGMT NOS Social History Tobacco Use Types Packs/Day Years Used Date Smoking Tobacco: Never Assessed Comments Unknown Sex and Gender Information Value Date Recorded Sex Assigned at Not on file 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
--- OUTSIDE RECORDS SUMMARY | 2024-12-31 13:58 | XMS_ITS | Encounter Summary ---
Author Organization [facility] Address [address] [place] [address] Care Team Providers Care Enamel Drier Name Role Phone Lewis Allen MD Primary Care Provider [phone] Encounter Details Date Type Department Care Team (Latest Contact Info) Description 08/19/2004 Outpatient Historical [facility] Family Medicine [place] [address] [facility] [address] [place] [address] Leta Lomas, RESEARCH TECHNOLOGIST [address] [place] [address] CONTRACEPTIVE MANGMT NOS (Primary Dx); NONINFECT VAG LEUKORRHEA Social History Tobacco Use Types Packs/Day Years Used Date Smoking Tobacco: Never Assessed Comments Unknown Sex and Gender Information Value Date Recorded Sex Assigned at Not on file 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
--- OUTSIDE RECORDS SUMMARY | 2024-12-31 13:58 | XMS_ITS | Clinical Summary ---
Author Organization [facility] Address [address] [place] [address] Phone Care Team Providers Care Returned Case Inspector Name Role Phone Lewis Allen MD Primary Care Provider [phone] Allergies No known active allergies Medications albuterol HFA 90 mcg inhaler Take 2 Puffs by inhalation every 6 hours as needed for Shortness of Breath. Active albuterol (PROVENTIL,VENTOL IN) 2.5 mg/0.5 mL Solution for Nebulization Take 2.5 mg by inhalation one time only. 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 Gender Identity Not on file Sexual Orientation [...] Health Maintenance Due Date Last Done Comments DTAP/TDAP/TD VACCINES (1 - Tdap) 2006 HPV/Cotest (21-29) 01/15/2008 HPV VACCINES (1 - 3-dose SCD M series) 2014 CERVICAL CANCER SCREENING 2017 HPV/Cotest (30-65) 2017 PAP SMEAR 2017 INFLUENZA VACCINE (#1) 2024 HEPATITIS B VACCINES Completed 08/08/2000, 04/11/2000, 03/10/2000 Insurance [place]ICAID [place] [address] [place] [address] Care Teams Returned Case Inspector Relationship Specialty Start Date End Date Lewis Allen MD [address] [place] [phone] PCP - General Family Practice 07/12/17
--- OUTSIDE RECORDS SUMMARY | 2024-12-31 13:58 | XMS_ITS | Encounter Summary ---
Author Organization [facility] Address [address] [place] [address] Care Team Providers Care Bottling Supervisor Name Role Phone Lewis Allen MD Primary Care Provider [phone] Encounter Details Date Type Department Care Team (Latest Contact Info) Description 04/01/2004 Outpatient Historical [facility] Family Medicine [place] [address] [facility] [address] [place] [address] Janelle Lopez NP NO ADDRESS ON FILE HAND INJURY NOS (Primary Dx); Pain in limb Social History Tobacco Use Types Packs/Day Years Used Date Smoking Tobacco: Never Assessed Comments Unknown Sex and Gender Information Value Date Recorded Sex Assigned at Not on file 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
--- OUTSIDE RECORDS SUMMARY | 2024-12-31 13:58 | XMS_ITS | Encounter Summary ---
Author Organization [facility] Address [address] [place] [address] Care Team Providers Care Transformer Molder Name Role Phone Lewis Allen MD Primary Care Provider [phone] Encounter Details Date Type Department Care Team (Latest Contact Info) Description 08/22/2003 Outpatient Historical [facility] Family Medicine- [place] [address] [place] [address] Janelle Lopez NP NO ADDRESS ON FILE VENEREAL DIS CONTACT (Primary Dx) Social History Tobacco Use Types Packs/Day Years Used Date Smoking Tobacco: Never Assessed Comments Unknown Sex and Gender Information Value Date Recorded Sex Assigned at Not on file 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
--- OUTSIDE RECORDS SUMMARY | 2024-12-31 13:58 | XMS_ITS | Encounter Summary ---
Author Organization [facility] Address [address] [place] [address] Care Team Providers Care Aquaculture Program Director Name Role Phone Lewis Allen MD Primary Care Provider [phone] Encounter Details Date Type Department Care Team (Latest Contact Info) Description 06/15/2004 Outpatient Historical [facility] Family Medicine [place] [address] [facility] [address] [place] [address] Leta Lomas, MYCOLOGIST [address] [place] [address] ESOPHAGEAL REFLUX (Primary Dx); ABDOMINAL [...] epigastric documented in this encounter Care Teams Aquaculture Program Director Relationship Specialty Start Date End Date Lewis Allen MD [address] [place] [phone] PCP - General Family Practice 07/12/17 documented as of this encounter
--- OUTSIDE RECORDS SUMMARY | 2024-12-31 13:58 | XMS_ITS | Encounter Summary ---
Author Organization [facility] Address [address] [place] [address] Care Team Providers Care Abalone Fisherman Name Role Phone Lewis Allen MD Primary Care Provider [phone] Reason for Referral * Outpatient Services (Routine) - Closed Specialty Diagnoses / Procedures Referred By Contac t Referred To Contact Radiology Diagnoses Other chest pain Procedures CT CHEST WO CONTRAST Rl Patten Sr., FNP [address] [place] [address] Phone: tel: fax: [facility] CT Scan [place] [address] [place] [address] Phone: tel: fax: Referral ID Status Reason Start Date Expiration Date V isits Requested Visits Authorized [id number] Closed [facility] CTS to Schedule (SGF) 06/17/2014 07/18/2015 1 1 Encounter Details Date Type Department Care Team (Latest Contact Info) Description 06/17/2014 Ancillary Orders [facility] Centralized Scheduling [address] [facility] [address] [place] [address] Rl Patten Sr., FNP [address] [place], [place] [address] Other chest pain (Primary Dx) Social History Tobacco Use Types Packs/Day Years Used Date Smoking Tobacco: Every Day Cigarettes Alcohol Use Standard Drinks/Week Comments No 0 (1 standard drink = 0.6 oz pur e alcohol) Comments No Sex and Gender Information Value Date Recorded Sex Assigned at Not on file 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
--- OUTSIDE RECORDS SUMMARY | 2024-12-31 13:58 | XMS_ITS | Encounter Summary ---
Author Organization [facility] Address [address] [place] [address] Care Team Providers Care Mail List Processor Name Role Phone Lewis Allen MD Primary Care Provider [phone] Encounter Details Date Type Department Care Team (Latest Contact Info) Description 10/15/2003 Outpatient Historical [facility] Family Medicine- [address] [phone] Janelle Lopez NP NO ADDRESS ON FILE GYNECOLOGIC EXAMINATION (Primary Dx) Social History Tobacco Use Types Packs/Day Years Used Date Smoking Tobacco: Never Assessed Comments Unknown Sex and Gender Information Value Date Recorded Sex Assigned at Not on file Legal Sex Female 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
--- OUTSIDE RECORDS SUMMARY | 2024-12-31 13:58 | XMS_ITS | Clinical Summary ---
Author Organization [facility] Address [address] [place] [address] Phone Care Team Providers Care Cable Dispatcher Name Role Phone Lewis Allen MD Primary [...] oz pure alcohol) last drink approximately 01/15/23 Feeling Safe Answer Date Recorded Are you in a relationship wi th someone who hurts you emotionally and/or physically? No 03/29/2023 Comments No Sex and Gender Information Value Date Recorded Sex Assigned at Not on file Legal Sex Female 1:26 AM INSIDE SALES PERSON Gender Identity Not on file Sexual Orientation Not on file Last Filed Vital Signs Vital Sign Reading Time Taken Comments Blood Pressure 205/186 03/29/2023 4:15 PM INSIDE SALES PERSON Pulse 116 03/29/2023 4:15 PM INSIDE SALES PERSON Temperature 37.2 C (98.9 F) 03/29/2023 3:07 PM INSIDE SALES PERSON Respiratory Rate 18 03/29/2023 4:15 PM INSIDE SALES PERSON Oxygen Saturation 99% 03/29/2023 4:15 PM INSIDE SALES PERSON Inhaled Oxygen Concentration - - Weight 87.7 kg (193 lb 6.4 oz) 03/29/2023 3:07 P M INSIDE SALES PERSON Height 154.9 cm (5' 1 ) 03/29/2023 3:07 PM INSIDE SALES PERSON Body Mass Index 36.54 03/29/2023 3:07 PM INSIDE SALES PERSON Plan of Treatment Health Maintenance Due Date Last Done Comments DTAP/TDAP/TD VACCINES (1 - Tdap) 2006 HPV/Cotest (21-29) 01/15/2008 HPV VACCINES (1 - 3-dose SCD M series) 2014 CERVICAL CANCER SCREENING 2017 HPV/Cotest (30-65) 2017 PAP SMEAR 2017 INFLUENZA VACCINE (#1) 2024 HEPATITIS B VACCINES Completed 08/08/2000, 04/11/2000, 03/10/2000 Insurance [place] [facility] [place] Care Teams Cable Dispatcher Relationship Specialty Start Date End Date Lewis Allen MD [address] [place] [phone] PCP - General Family Practice 07/12/17
--- OUTSIDE RECORDS SUMMARY | 2024-12-31 13:58 | XMS_ITS | Encounter Summary ---
Author Organization [facility] Address [address] [place] [address] Care Team Providers Care Char Filter Operator Name Role Phone Lewis Allen MD Primary Care Provider [phone] Encounter Details Date Type Department Care Team (Latest Contact Info) Description 11/04/2002 Outpatient Historical [facility] Family Medicine- [address] [place] [address] Ingris Yates MD NO ADDRESS ON FILE MED EXAM NEC-ADMIN PURP (Primary Dx) Social History Tobacco Use Types Packs/Day Years Used Date Smoking Tobacco: Never Assessed Comments Unknown Sex and Gender Information Value Date Recorded Sex Assigned at Not on file Legal Sex Female 2:38 AM ASSURANCE SENIOR MANAGER Gender Identity Not on file Sexual Orientation Not on file documented as of this encounter Plan of Treatment Not on file documented as of this encounter Visit Diagnoses Diagnosis Other general medical examination for administrative purposes- Primary documented in this encounter Care Teams Char Filter Operator Relationship Specialty Start Date End Date Lewis Allen MD [address] [place] [phone] PCP - General Family Practice 07/12/17 documented as of this encounter
--- OUTSIDE RECORDS SUMMARY | 2024-12-31 13:58 | XMS_ITS | Encounter Summary ---
Author Organization [facility] Address [address] [place] [address] Care Team Providers Care Millinery Worker Name Role Phone Lewis Allen MD Primary Care Provider [phone] Encounter Details Date Type Department Care Team (Latest Contact Info) Description 10/15/2003 Outpatient Historical [facility] [place] [address] [place] [address] Janelle Lopez NP NO ADDRESS ON FILE SCREENING FOR VENERAL DIS (Primary Dx) Social History Tobacco Use Types Packs/Day Years Used Date Smoking Tobacco: Never Assessed Comments Unknown Sex and Gender Information Value Date Recorded Sex Assigned at Not on file Legal Sex Female 2:38 AM ASPHALT RAKER Gender Identity Not on file Sexual Orientation Not on file documented as of this encounter Plan of Treatment Not on file documented as of this encounter Visit Diagnoses Diagnosis Screening examination for venereal disease- Primary documented in this encounter Care Teams Millinery Worker Relationship Specialty Start Date End Date Lewis Allen MD [address] [place] [phone] PCP - General Family Practice 07/12/17 documented as of this encounter
--- OUTSIDE RECORDS SUMMARY | 2024-12-31 13:58 | XMS_ITS | Encounter Summary ---
Author Organization [facility] Address [address] [facility] Attn: Epic Prelude ADT [place] [address] Care Team Providers Care Mobile Lounge Driver Or Operator Name Role Phone Lewis Allen MD Primary Care Provider [phone] Encounter Details Date Type Department Care Team (Late st Contact Info) Description 11/26/2007 Outpatient Historical Non-Staff, Physician NO ADDRESS ON FILE Social History Tobacco Use Types Packs/Day Years Used Date Smoking Tobacco: Never Assessed Comments Unknown Sex and Gender Information Value Date Recorded Sex Assigned at Not on file Legal Sex Female 2:38 AM HOP GROWER Gender Identity Not on file Sexual Orientation [...] ORDER EZEQUIEL Final Result Performing Organization Address [facility] Co de Phone Number [...] ORDER EZEQUIEL Final Result Performing Organization Address [facility] Co de Phone Number INTERFACE SYSTEM Refer to clinic/hospital department documented in this encounter Visit Diagnoses Not on filedocumented in this encounter Care Teams Mobile Lounge Driver Or Operator Relationship Specialty Start Date End Date Lewis Allen MD [address] [place] [phone] PCP - General Family Practice 07/12/17 documented as of this encounter
--- OUTSIDE RECORDS SUMMARY | 2024-12-31 13:58 | XMS_ITS | Encounter Summary ---
Author Organization [facility] Address [address] [place] [address] Care Team Providers Care Planner Chief Name Role Phone Lewis Allen MD Primary Care Provider [phone] Encounter Details Date Type Department Care Team (Late st Contact Info) Description 10/20/2003 Outpatient Historical [facility] Family Medicine- [address] [place] [address] Janelle Lopez NP NO ADDRESS ON FILE Social History Tobacco Use Types Packs/Day Years Used Date Smoking Tobacco: Never Assessed Comments Unknown Sex and Gender Information Value Date Recorded Sex Assigned at Not on file Legal Sex Female 2:38 AM SEA KAYAKING GUIDE Gender Identity Not on file Sexual Orientation Not on file documented as of this encounter Plan of Treatment Not on file documented as of this encounter Visit Diagnoses Not on filedocumented in this encounter Care Teams Planner Chief Relationship Specialty Start Date End Date Lewis Allen MD [address] [place] [phone] PCP - General Family Practice 07/12/17 documented as of this encounter
--- OUTSIDE RECORDS SUMMARY | 2024-12-31 13:58 | XMS_ITS | Encounter Summary ---
Author Organization [facility] Address [address] [place] [address] Care Team Providers Care Blueprinter Name Role Phone Lewis Allen MD Primary Care Provider Encounter Details Date Type Department Care Team (Latest Contact Info) Description 09/30/2003 Outpatient Historical [facility] Family Medicine- [address] [place] [address] Janelle Lopez NP NO ADDRESS ON FILE VAGINITIS NOS (Primary Dx); CONTRACEPTIVE MANGMT NOS Social History Tobacco Use Types Packs/Day Years Used Date Smoking Tobacco: Never Assessed Comments Unknown Sex and Gender Information Value Date Recorded Sex Assigned at Not on file Legal Sex Female 2:38 AM MOTORCYCLE POLICE Gender Identity Not on file Sexual Orientation Not on file documented as of this encounter Plan of Treatment Not on file documented as of this encounter Visit Diagnoses Diagnosis Vaginitis and vulvovaginitis, unspecified- Primary Unspecified contraceptive management documented in this encounter Care Teams Blueprinter Relationship Specialty Start Date End Date Lewis Allen MD [facility] [place] [phone] PCP - General Family Practice 07/12/17 documented as of this encounter
--- OUTSIDE RECORDS SUMMARY | 2024-12-31 13:58 | XMS_ITS | Encounter Summary ---
Author Organization [facility] Address [address] [place] [address] Care Team Providers Care Data Reduction Technician Name Role Phone Lewis Allen MD Primary Care Provider [phone] Encounter Details Date Type Department Care Team (Latest Contact Info) Description 02/18/2003 Outpatient Historical [facility] Family Medicine- [address] [place] [address] Zhou Adames, NO ADDRESS ON FILE ACUTE PHARYNGITIS (Primary Dx); ACUTE BRONCHITIS Social History Tobacco Use Types Packs/Day Years Used Date Smoking Tobacco: Never Assessed Comments Unknown Sex and Gender Information Value Date Recorded Sex Assigned at Not on file Legal Sex Female 2:38 AM DROP WIRE ALIGNER Gender Identity Not on file Sexual Orientation Not on file documented as of this encounter Plan of Treatment Not on file documented as of this encounter Visit Diagnoses Diagnosis Acute pharyngitis- Primary Acute bronchitis documented in this encounter Care Teams Data Reduction Technician Relationship Specialty Start Date End Date Lewis Allen MD [address] [place] [phone] PCP - General Family Practice 07/12/17 documented as of this encounter
--- OUTSIDE RECORDS SUMMARY | 2024-12-31 13:58 | XMS_ITS | Encounter Summary ---
Author Organization [facility] Address [address] [place] [address] Care Team Providers Care Business Process Analyst Name Role Phone Lewis Allen MD Primary Care Provider [phone] Encounter Details Date Type Department Care Team (Latest Contact Info) Description 11/04/2003 Outpatient Historical [facility] Family Medicine- [address] [place] [address] Janelle Lopez NP NO ADDRESS ON FILE ABDOMINAL PAIN RUQ (Primary Dx); JOINT PAIN-UNSPEC Social History Tobacco Use Types Packs/Day Years Used Date Smoking Tobacco: Never Assessed Comments Unknown Sex and Gender Information Value Date Recorded Sex Assigned at Not on file Legal Sex Female 2:38 AM SOAPING DEPARTMENT SUPERVISOR Gender Identity Not on file Sexual Orientation Not on file documented as of this encounter Plan of Treatment Not on file documented as of this encounter Visit Diagnoses Diagnosis Abdominal pain, right upper quadrant- Primary Pain in joint, site unspecified documented in this encounter Care Teams Business Process Analyst Relationship Specialty Start Date End Date Lewis Allen MD [address] [place] [phone] PCP - General Family Practice 07/12/17 documented as of this encounter
--- OUTSIDE RECORDS SUMMARY | 2024-12-31 13:58 | XMS_ITS | Encounter Summary ---
Author Organization [facility] Address [address] [place] [address] Care Team Providers Care Eyelet Row Marker Name Role Phone Lewis Allen MD Primary Care Provider [phone] Encounter Details Date Type Department Care Team (Latest Contact Info) Description 03/21/2006 Outpatient Historical [facility] Family Medicine [place] [address] [facility] [address] [place] [address] Janelle Lopez NP NO ADDRESS ON FILE Contact Dermatitis and Other Eczema, due to Unspecified Cause (Primary Dx); Dermatophytosis of the Body; Examination or Test, Positive Result Social History Tobacco Use Types Packs/Day Years Used Date Smoking Tobacco: Never Assessed Comments Unknown Sex and Gender Information Value Date Recorded Sex Assigned at Not on file Legal Sex Female 2:38 AM DAIRY EQUIPMENT SPECIALIST Gender Identity Not on file Sexual Orientation Not on file documented as of this encounter Plan of Treatment Not on file documented as of this encounter Visit Diagnoses Diagnosis Contact dermatitis and other eczema, due to unspecified cause- Primary Dermatophytosis of the body examination or test, positive result documented in this encounter Care Teams Eyelet Row Marker Relationship Specialty Start Date End Date Lewis Allen MD [address] [place] [phone] PCP - General Family Practice 07/12/17 documented as of this encounter
--- OUTSIDE RECORDS SUMMARY | 2024-12-31 13:58 | XMS_ITS | Encounter Summary ---
Author Organization [facility] Address [address] [place] [address] Care Team Providers Care Veneer Stacker Name Role Phone Lewis Allen MD Primary Care Provider [phone] Encounter Details Date Type Department Care Team (Latest Contact Info) Description 08/19/2004 Outpatient Historical [facility] Family Medicine [place] [address] [facility] [address] [place] [address] Leta Lomas, JIG MILL OPERATOR [address] [place] [address] VAGINITIS NOS (Primary Dx) Social History Tobacco Use Types Packs/Day Years Used Date Smoking Tobacco: Never Assessed Comments Unknown Sex and Gender Information Value Date Recorded Sex Assigned at Not on file Legal Sex Female 2:38 AM AIRCRAFT ACCESSORIES MECHANIC Gender Identity Not on file Sexual Orientation Not on file documented as of this encounter Plan of Treatment Not on file documented as of this encounter Visit Diagnoses Diagnosis Vaginitis and vulvovaginitis, unspecified- Primary documented in this encounter Care Teams Veneer Stacker Relationship Specialty Start Date End Date Lewis Allen MD [address] [place] [phone] PCP - General Family Practice 07/12/17 documented as of this encounter
--- OUTSIDE RECORDS SUMMARY | 2024-12-31 13:58 | XMS_ITS | Encounter Summary ---
Author Organization [facility] Address [address] [place] [address] Care Team Providers Care Animal Anatomist Name Role Phone Lewis Allen MD Primary Care Provider Encounter Details Date Type Department Care Team (Latest Contact Info) Description 11/19/2004 Outpatient Historical [facility] Family Medicine [place] [address] [facility] [address] [place] [address] Janelle Lopez NP NO ADDRESS ON FILE CONTRACEPTIVE MANGMT NEC (Primary Dx) Social History Tobacco Use Types Packs/Day Years Used Date Smoking Tobacco: Never Assessed Comments Unknown Sex and Gender Information Value Date Recorded Sex Assigned at Not on file Legal Sex Female 2:38 AM MANAGER DISTRIBUTION Gender Identity Not on file Sexual Orientation Not on file documented as of this encounter Plan of Treatment Not on file documented as of this encounter Visit Diagnoses Diagnosis Other general counseling and advice for contraceptive management- Primary documented in this encounter Care Teams Animal Anatomist Relationship Specialty Start Date End Date Lewis Allen MD [address] [place] [phone] PCP - General Family Practice 07/12/17 documented as of this encounter
--- OUTSIDE RECORDS SUMMARY | 2024-12-31 13:58 | XMS_ITS | Encounter Summary ---
Author Organization [facility] Address [address] [place] [address] Care Team Providers Care Fuse Maker Name Role Phone Lewis Allen MD Primary Care Provider [phone] Reason for Referral * Outpatient Services (Routine) - Closed Specialty Diagnoses / Procedures Referred By Contac t Referred To Contact Radiology Diagnoses Chest pain Back pain Arm pain Procedures MRI THORACIC WO CONTRAST Rl Patten Sr., FNP [address] [place] [id number] Phone: tel: fax: [facility] [address] [address] [place] [address] Phone: tel: fax: Referral ID Status Reason Start Date Expiration Date V isits Requested Visits Authorized [id number] Closed [facility] View CTS to Schedule (SGF) 06/24/2014 07/23/2014 1 1 Encounter Details Date Type Department Care Team (Latest Contact Info) Description 06/24/2014 Ancillary Orders [facility] Centralized Scheduling [address] [facility] [address] [place] [address] Rl Patten Sr., FNP [address] [place] [address] Chest pain (Primary Dx); Back pain; Arm pain Social History Tobacco Use Types Packs/Day Years Used Date Smoking Tobacco: Every Day Cigarettes Alcohol Use Standard Drinks/Week Comments No 0 (1 standard drink = 0.6 oz pur e alcohol) Comments No Sex and Gender Information Value Date Recorded Sex Assigned at Not on file Legal Sex Female 2:38 AM MANAGER SOCIAL RESPONSIBILITY Gender Identity Not on file Sexual Orientation [...] mild degenerative changes. BILLY/roland - uploaded from [employer]- Narrative Procedure Note Kin Martinez MD - [...] mild degenerative changes. BILLY/roland - uploaded from [employer]- us Rl Patten Sr., INSTRUCTOR EXTENSION WORK MR ORDERABLES F inal Result documented in this encounter Visit Diagnoses Diagnosis Chest pain- Primary Chest pain, unspecified Back pain Backache, unspecified Arm pain Pain in limb Chest pain Chest pain, unspecified Back pain Backache, unspecified Arm pain Pain in limb documented in this encounter Care Teams Fuse Maker Relationship Specialty Start Date End Date Lewis Allen MD [address] [place] [phone] PCP - General Family Practice 07/12/17 documented as of this encounter
--- OUTSIDE RECORDS SUMMARY | 2024-12-31 13:58 | XMS_ITS | Encounter Summary ---
Author Organization [facility] Address [address] [place] [address] Care Team Providers Care Warranty Manager Name Role Phone Lewis Allen MD Primary Care Provider [phone] Encounter Details Date Type Department Care Team (Latest Contact Info) Description 08/22/2003 Outpatient Historical [facility] Family Medicine- [address] [place] [address] Janelle Lopez NP NO ADDRESS ON FILE URIN TRACT INFECTION NOS (Primary Dx); SKIN ANOMALY NEC Social History Tobacco Use Types Packs/Day Years Used Date Smoking Tobacco: Never Assessed Comments Unknown Sex and Gender Information Value Date Recorded Sex Assigned at Not on file Legal Sex Female 2:38 AM PRO SHOP ATTENDANT Gender Identity Not on file Sexual Orientation Not on file documented as of this encounter Plan of Treatment Not on file documented as of this encounter Visit Diagnoses Diagnosis Urinary tract infection, site not specified- Primary Other specified congenital anomaly of skin documented in this encounter Care Teams Warranty Manager Relationship Specialty Start Date End Date Lewis Allen MD [address] [place] [phone] PCP - General Family Practice 07/12/17 documented as of this encounter
--- OUTSIDE RECORDS SUMMARY | 2024-12-31 13:58 | XMS_ITS | Encounter Summary ---
Author Organization [facility] Address [address] [place] [address] Care Team Providers Care Cobol Application Developer Name Role Phone Lewis Allen MD Primary Care Provider [phone] Encounter Details Date Type Department Care Team (Late st Contact Info) Description 03/23/2004 Outpatient Historical [facility] Justin Jack MD NO ADDRESS ON FILE Social History Tobacco Use Types Packs/Day Years Used Date Smoking Tobacco: Never Assessed Comments Unknown Sex and Gender Information Value Date Recorded Sex Assigned at Not on file Legal Sex Female 2:38 AM FINISHER ACCORDION Gender Identity Not on file Sexual Orientation Not on file documented as of this encounter Plan of Treatment Not on file documented as of this encounter Visit Diagnoses Not on filedocumented in this encounter Care Teams Cobol Application Developer Relationship Specialty Start Date End Date Lewis Allen MD [address] [place] [phone] PCP - General Family Practice 07/12/17 documented as of this encounter
--- OUTSIDE RECORDS SUMMARY | 2024-12-31 13:58 | XMS_ITS | Encounter Summary ---
Author Organization [facility] Address [address] [place] [address] Care Team Providers Care Landing Worker Name Role Phone Lewis Allen MD Primary Care Provider [phone] Encounter Details Date Type Department Care Team (Latest Contact Info) Description 10/15/2003 Outpatient Historical [facility] Family Medicine- [address] [place] [address] Janelle Lopez NP NO ADDRESS ON FILE VAGINITIS NOS (Primary Dx); Gynecologic examination; Idiopathic scoliosis Social History Tobacco Use Types Packs/Day Years Used Date Smoking Tobacco: Never Assessed Comments Unknown Sex and Gender Information Value Date Recorded Sex Assigned at Not on file Legal Sex Female 2:38 AM EDGE DYER Gender Identity Not on file Sexual Orientation Not on file documented as of this encounter Plan of Treatment Not on file documented as of this encounter Visit Diagnoses Diagnosis Vaginitis and vulvovaginitis, unspecified- Primary Gynecologic examination Gynecological examination Idiopathic scoliosis Scoliosis (and kyphoscoliosis), idiopathic documented in this encounter Care Teams Landing Worker Relationship Specialty Start Date End Date Lewis Allen MD [address] [place] [phone] PCP - General Family Practice 07/12/17 documented as of this encounter
--- OUTSIDE RECORDS SUMMARY | 2024-12-31 13:58 | XMS_ITS | Encounter Summary ---
Author Organization [facility] Address [address] [place] [address] Care Team Providers Care Flavoring Maker Name Role Phone Lewis Allen MD Primary Care Provider [phone] Encounter Details Date Type Department Care Team (Late st Contact Info) Description 09/03/2003 Outpatient Historical [facility] Janelle Lopez NP NO ADDRESS ON FILE Social History Tobacco Use Types Packs/Day Years Used Date Smoking Tobacco: Never Assessed Comments Unknown Sex and Gender Information Value Date Recorded Sex Assigned at Not on file Legal Sex Female 2:38 AM PRODUCTION ARTIST Gender Identity Not on file Sexual Orientation Not on file documented as of this encounter Plan of Treatment Not on file documented as of this encounter Visit Diagnoses Not on filedocumented in this encounter Care Teams Flavoring Maker Relationship Specialty Start Date End Date Lewis Allen MD [address] [place] [phone] PCP - General Family Practice 07/12/17 documented as of this encounter
--- OUTSIDE RECORDS SUMMARY | 2024-12-31 13:58 | XMS_ITS | Encounter Summary ---
Author Organization [facility] Address [address] [place] [address] Care Team Providers Care Social Service Technician Name Role Phone Lweis Allen MD Primary Care Provider [phone] Encounter Details Date Type Department Care Team (Latest Contact Info) Description 09/03/2003 Outpatient Historical [facility] Family Medicine- [address] [place] [address] Janelle Lopez NP NO ADDRESS ON FILE OTHER MALAISE AND FATIGUE (Primary Dx); URIN TRACT INFECTION NOS; VAGINITIS NOS Social History Tobacco Use Types Packs/Day Years Used Date Smoking Tobacco: Never Assessed Comments Unknown Sex and Gender Information Value Date Recorded Sex Assigned at Not on file Legal Sex Female 2:38 AM CUSTOM FEED MILL OPERATOR Gender Identity Not on file Sexual Orientation Not on file documented as of this encounter Plan of Treatment Not on file documented as of this encounter Visit Diagnoses Diagnosis Other malaise and fatigue- Primary Urinary tract infection, site not specified Vaginitis and vulvovaginitis, unspecified documented in this encounter Care Teams Social Service Technician Relationship Specialty Start Date End Date Lewis Allen MD [address] [place] [phone] PCP - General Family Practice 07/12/17 documented as of this encounter
--- OUTSIDE RECORDS SUMMARY | 2024-12-31 13:58 | XMS_ITS | Encounter Summary ---
Author Organization [facility] Address [address] [place] [address] Care Team Providers Care Land Mobile Radio Technician Name Role Phone Lewis Allen MD Primary Care Provider [phone] Encounter Details Date Type Department Care Team (Latest Contact Info) Description 11/18/2003 Outpatient Historical [facility] General Surgery [place] [address] [address] [address] [place] [address] [place] [address] [facility] [address] [place] [address] DIS OF GALLBLADDER NEC (Primary Dx) Social History Tobacco Use Types Packs/Day Years Used Date Smoking Tobacco: Never Assessed Comments Unknown Sex and Gender Information Value Date Recorded Sex Assigned at Not on file 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
--- OUTSIDE RECORDS SUMMARY | 2024-12-31 13:58 | XMS_ITS | Encounter Summary ---
Author Organization [facility] Address [address] [place] [address] Care Team Providers Care Checker Cashier Name Role Phone Lewis Allen MD Primary Care Provider [phone] Encounter Details Date Type Department Care Team (Latest Contact Info) Description 09/30/2003 Outpatient Historical [facility] Family Medicine- [address] [place] [address] Janelle Lopez NP NO ADDRESS ON FILE VAGINITIS NOS (Primary Dx) Social History Tobacco Use Types Packs/Day Years Used Date Smoking Tobacco: Never Assessed Comments Unknown Sex and Gender Information Value Date Recorded Sex Assigned at Not on file 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
--- OUTSIDE RECORDS SUMMARY | 2024-12-31 13:58 | XMS_ITS | Encounter Summary ---
Author Organization [facility] Address [address] [place] [address] Care Team Providers Care Rn Provider Relations Name Role Phone Lewis Allen MD Primary Care Provider [phone] Encounter Details Date Type Department Care Team (Latest Contact Info) Description 02/06/2004 Outpatient Historical [facility] Family Medicine [place] [address] [facility] [address] [place] [address] Janelle Lopez NP NO ADDRESS ON FILE ACUTE PHARYNGITIS (Primary Dx); ACUTE BRONCHITIS; ASTHMA UNSPECIFIED Social History Tobacco Use Types Packs/Day Years Used Date Smoking Tobacco: Never Assessed Comments Unknown Sex and Gender Information Value Date Recorded Sex Assigned at Not on file 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
--- OUTSIDE RECORDS SUMMARY | 2024-12-31 13:58 | XMS_ITS | Encounter Summary ---
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
[2024-12-31 14:01] VITALS: BP 149/97; PULSE 110; RESP 18; TEMP 36.7; O2SAT 97; BMI 33.3
--- NOTE | 2024-12-31 14:12 | XR_ITS ---
WS: [id number] XR chest 1V portable [id number] REASON FOR EXAM: dyspnea/cough FINDINGS: Chest is unchanged compared to 12/11/2019. Heart and mediastinum are within normal limits. Calcified granulomatous disease bilaterally. No acute pulmonary parenchymal or pleural abnormality. XR/XR chest 1V portable [id number] IMPRESSION: Stable chest without acute abnormality.
[2024-12-31 14:31] LABS: Hematocrit 46.8 % (36-47); Hemoglobin 16.40 g/dL (11.27-16.99); Mean Corpuscular HGB Conc 35.0 g/dL (30-55); Mean Corpuscular Hemoglobin 30.4 pg (27-33); Mean Corpuscular Volume 86.7 fl (85-98); Nucleated Red Blood Cells % 0 %; Platelet Count 131 10^3/cmm (157-399); Red Blood Count 5.40 10^6/uL (3.85-5.65); White Blood Count 7.58 10^3/uL (3.29-11.43)
[2024-12-31 14:34] LABS: ABG PCO2 36.3 mmHg (35-45); ABG PH Result 7.43 (7.35-7.45); Alveolar-Arterial Oxygen Gradi 3.7 mmHg (5-10); Arterial Blood Gas Hematocrit 51.6 % (37-47); Blood Gas Allen Test Pos; Blood Gas Operator Identificat WALCI; Blood Gas Sample Site Radial, right; Blood Gas Sample Type Arterial; Carboxyhemoglobin 12.4 %THgb (0.4-20.1); Glucose Level-ABG 721.0 mg/dL (70-115); HCO3 ABG 23.9 mmol/L (22-26); Ionized Calcium Level - ABG 1.1 mmol/L (1.1-1.4); Methemoglobin 0.7 % (0.4-1.5); Oxygen Saturation ABG 97.8; PO2 ABG 76.0 mmHg (80.0-100.0); PO2 FiO2 Ratio Arterial Blood 361; Potassium Level - ABG 3.5 mmol/L (3.5-5.0); Sodium Level - ABG 128.0 mmol/L (131-143)
[2024-12-31] MEDS: insulin regular-human 100 units/1 mL 10 UNIT IVP ×2 (14:37→15:25)
--- NOTE | 2024-12-31 14:41 | ED_ITS ---
HPI - General Adult 2 General: Chief complaint: General Medical Stated complaint: High sugar levels Time Seen by Provider: 12/31/24 14:21 History of Present Illness: 39-year-old female presents emergency ro om she is an insulin-dependent diabetic reports elevated blood sugars. About 4 weeks ago she had a carpal tunnel surgery. After this she was doing well her blood sugars were in a little high and about 2 weeks ago she began having upper respiratory infection. She seen her doctor for was started on amoxicillin she has not had any fever she has had an increase in productive cough from her baseline smoker's cough. No hemoptysis. No dysuria urgency or frequency some generalized abdominal discomfort. She did take some short acting insulin approximately 4 hours prior to arrival. She denies any diarrhea. She has had a couple episodes of vomiting at home. Associated symptoms: Deny chest pain, dyspnea or rash Related Data Home Medications ?Medication ?Instructions ?Recorded ?Confirmed budesonide-formoterol HFA 80 1 puff inhalation BID PRN 10/31/24 12/31/24 mcg-4.5 mcg/actuation aerosol Shortness Of Breath inhaler (Symbicort) venlafaxine 75 mg capsule,extended 75 mg PO DAILY 10/0312/31/24 release 24 hr dulaglutide 1.5 mg/0.5 mL 1.5 mg SUBCUT Q7D 11/20/24 0 12/31/24 subcutaneous pen injector (Trulicity) atorvastatin 10 mg tablet 10 mg PO DAILY 12/31/2412/04 insulin glargine 100 unit/mL (3 70 unit SUBCUT BID 12/31/24 mL) subcutaneous pen (Lantus Solostar U-100 Insulin) Previous Rx's ?Medication ?Instructions ?Recorded blood sugar diagnostic (True #100 ea 04/26/23 Metrix Glucose Test Strip) cyanocobalamin (vitamin B-12) 500 500 mcg PO DAILY #30 tabs 04/26/23 mcg tablet (Vitamin B-12) thiamine HCl (vitamin B1) 100 mg 100 mg PO DAILY #30 t abs 04/26/23 tablet blood sugar diagnostic (The Personal BeeTouch #100 ea 04/27/23 Ultra Test strips) blood-glucose meter (BroadHopuch #1 ea 04/27/23 Ultra2 Meter) lancets 33 gauge (OneTouch Delica #100 ea 01/25/24 Plus Lancet) pen needle, diabetic 31 gauge x #100 ea 03/04/24/ (Pentips Pen Needle) albuterol sulfate 90 mcg/actuation 2 puff inhalation Q 6H PRN 04/15/24 aerosol inhaler shortness of breath or wheez ing #8.5 grams blood-glucose sensor (Dexcom G6 #3 ea 08/16/24 Sensor device) blood-glucose transmitter (Dexcom #1 ea 08/16/24 G6 Transmitter device) cholecalciferol (vitamin D3) 50 100 mcg (2 x 50 mcg (2 ,000 unit)) 08/16/24 mcg (2,000 unit) capsule PO DAILY #60 caps quetiapine 25 mg tablet (Seroquel) 25 mg PO DAILY #30 tabs 08/16/24 blood-glucose,steep tender,cont #2 ea 10/30/24 (Dexcom G6 Gas Appliance Repairer) pen needle, diabetic 31 gauge x #100 ea 10/31/2408/16 (TechLITE Pen Needle) insulin lispro 100 unit/mL 15 unit (0.15 mL) SUBCUT .A [facility] #15 11/04/24 subcutaneous pen (Humalog KwikPen mL (U-100) Insulin) potassium chloride 10 mEq 10 meq PO DAILY #30 tabs 07/26 tablet,extended release (Klor-Con) amoxicillin 875 mg-potassium 1 tab PO BID #14 tabs clavulanate 125 mg tablet Allergies Allergy/AdvReac Type Severity Reaction Status Date / Time gabapentin Allergy Severe unknown Verified 12/10/24 15:18 amitriptyline Allergy ADR-slurred Verified 12/10/24 15:18 words Review of Systems 2 Const: Denies: fever(s) or chills Card: Denies: chest pain Resp: Denies: dyspnea GI: Denies: abdominal pain : Denies: dysuria, urinary frequency or urinary urgency Musc: Denies: neck pain or back pain Skin/Breast: Denies: rash PFSH ED 2 PFSH: Medical History Diabetes Essential hypertension COPD (chronic obstructive pulmonary disease) Saw Dr. Pan at [facility] - Doesn't want to see again Surgical History History of carpal tunnel surgery of left wrist As well as cubital tunnel - Dr Ortiz - 2024 History of carpal tunnel surgery of right wrist 07/2024 - Diana Hx of cholecystectomy Hx of hysterectomy with BLO Family History Father CAD (coronary artery disease) Mother Cancer cervical cancer Social History Smoking and tobacco/nicotine status: current every day tobacco/nicotine user cigarettes Packs smoked per day: 0.5 Current occupational status: employed Current occupation: [employer] Physical Exam 2 Const: GENERAL APPEARANCE: cooperative ORIENTATION/CONSCIOUSNESS: Yes awake, Yes oriented to person, Yes oriented to place and Yes oriented to time HENMT: COMMON NORMALS: normocephalic, atraumatic and hearing grossly normal bilaterally HEAD & SCALP: normocephalic and atraumatic Resp: COMMON NORMALS: normal respiratory effort, No retractions, No use of accessory muscles and clear to auscultation bilaterally AUSCULTATION: clear to auscultation bilaterally Cardio: COMMON NORMALS: regular rate, regular rhythm and No murmurs present (Cardio) RATE: regular rate RHYTHM: regular rhythm GI: COMMON NORMALS: Soft to palpation and No hepatosplenomegaly present A USCULTATION: Yes normoactive bowel sounds PALPATION: Yes Soft to palpation, No Tenderness to palpation present (GI), No Guarding due to palpation present (GI) and Yes No hepatosplenomegaly present Extremity: COMMON NORMALS: normal to inspection, capillary refill normal, no clubbing, cyanosis or edema, no calf tenderness and no pedal edema Neuro: SENSORIUM/ORIENTATION: Yes oriented to person, Yes oriented to place and Yes oriented to time Skin: COMMON NORMALS: no rashes or lesions noted GENERAL SKIN EXAM: no rashes or lesions noted Course 2 Vital Signs: Vital signs: Vital Signs Temperature 98.1 F 12/31/24 14:01 Pulse Rate 91 12/31/24 17:47 Respiratory Rate 18 12/31/24 14:01 Blood Pressure 144/101 12/31/24 17:47 Pulse Oximetry 98 12/31/24 17:47 Oxygen Delivery Me thod Room Air 12/31/24 14:01 MDM - General Adult Medical Decision Making Lactic acid elevated I do believe this is due to her volume depletion as well as the fact that she is on metformin. Will have her stop her metformin. She is feeling better after the IV fluids and her hyperglycemia has improved. Reviewed findings with the patient. Have her follow-up with primary care for further adjustments on her insulin. No signs of infection at this time. Slight elevations of transaminases and alk phos but this has been chronic and repeat exam there is no pain in the right upper quadrant. Serum ketones and ABG not indicative of DKA. Patient feeling much better after IV fluids and insulin. Her blood sugar has improved she would prefer to go home at this time. Return if has further problems monitor blood sugars closely. Medical Records I reviewed the patient's medical records. Lab Data I reviewed the patient's lab results. 12/31/24 14:23 12/31/24 14:23 Radiology Impressions Chest X-Ray 12/31/24 14:12 IMPRESSION: Stable chest without acute abnormality. Laboratory Results WBC 7.58 10^3/uL (3.29-11.43) 12/31/24 14:23 RBC 5.40 10^6/uL (3.85-5.65) 12/31/24 14:23 Hgb 16.40 g/dL (11.27-16.99) 12/31/24 14:23 Hct 46.8 % (36-47) 12/31/24 14:23 MCV 86.7 fl (85-98) 12/31/24 14:23 MCH 30.4 pg (27-33) 12/31/24 14:23 MCHC 35.0 g/dL (30-55) 12/31/24 14:23 RDW 12.1 % (12.1-15.1) 12/31/24 14:23 Plt Count 131 10^3/cmm (157-399) L 12/31/24 14:23 MPV 13.4 fL (7.4-10.4) H 12/31/24 14:23 Neut % (Auto) 55.2 % 12/31/24 14:23 Lymph % (Auto) 34.8 % 12/31/24 14:23 [place] % (Auto) 4.6 % 12/31/24 14:23 Eos % (Auto) 4.4 % 12/31/24 14:23 Baso % (Auto) 0.9 % 12/31/24 14:23 Neut # (Auto) 4.18 10^3/uL (1.8-7.7) 12/31/24 14:23 Lymph # (Auto) 2.6 10^3/uL (0.8-4.8) 12/31/24 14:23 [place] # (Auto) 0.4 10^3/uL (0.2-0.9) 12/31/24 14:23 Eos # (Auto) 0.3 10^3/uL (0.0-0.8) 12/31/24 14:23 Baso # (Auto) 0.1 10^3/uL (0.0-0.1) 12/31/24 14:23 Nucleated RBC % (auto) 0 % 12/31/24 14:23 Nucleated RBCs # 0.0 /100WBC 12/31/24 14:23 Specimen Type Arterial 12/31/24 14:23 Sample Site Radial, right 12/31/24 14:23 ABG pH 7.43 (7.35-7.45) 12/31/24 14:23 ABG pCO2 36.3 mmHg (35-45) 12/31/24 14:23 ABG pO2 76.0 mmHg (80.0-100.0) L 12/31/24 14:23 ABG PO2/FiO2 Ratio 361 12/31/24 14:23 ABG HCO3 23.9 mmol/L (22-26) 12/31/24 14:23 ABG O2 Saturation 97.8 12/31/24 14:23 ABG Base Excess -0.1 mmol/L (-2.0-2.0) 12/31/24 14:23 Fili Test Pos 12/31/24 14:23 A-a O2 Gradient 3.7 mmHg (5-10) L 12/31/24 14:23 Hematocrit 51.6 % (37-47) H 12/31/24 14:23 Hgb O2 Saturation 84.9 % (95-100) L 12/31/24 14:23 Carboxyhemoglobin 12.4 %THgb (0.4-20.1) 12/31/24 14:23 Methemoglobin 0.7 % (0.4-1.5) 12/31/24 14:23 Total Hemoglobin 16.8 g/dL (12-16) H 12/31/24 14:23 Sodium 128.0 mmol/L (131-143) L 12/31/24 14:23 Potassium 3.5 mmol/L (3.5-5.0) 12/31/24 14:23 Glucose 721.0 mg/dL (70-115) H 12/31/24 14:23 Ionized Calcium 1.1 mmol/L (1.1-1.4) 12/31/24 14:23 O2 Delivery Device Room air 12/31/24 14:23 FiO2 21.0 % 12/31/24 14:23 Radio Sportscaster ID [place] 12/31/24 14:23 Sodium 125 mmol/L (136-145) L 12/31/24 14:23 Potassium 3.5 mmol/L (3.5-5.1) 12/31/24 14:23 Chloride 87 mmol/L (98-107) L 12/31/24 14:23 Carbon Dioxide 21 mmol/L (22-29) L 12/31/24 14:23 Anion Gap 20.5 (5-19) H 12/31/24 14:23 BUN 3 mg/dL (6-20) L 12/31/24 14:23 Creatinine 0.6 mg/dL (0.5-0.9) 12/31/24 14:23 GFR Calculation 112.5 mL/min (90-130) 12/31/24 14:23 Glucose 737 mg/dL (65-115) H* 12/31/24 14:23 POC Glucose 319 mg/dL (70-110) H 12/31/24 16:16 Calculated Osmolality 292 mOsm/kg (285-295) 12/31/24 14:23 Lactic Acid 6.5 mmol/L (0.5-2.2) H* 12/31/24 14:23 Calcium 9.0 mg/dL (8.5-10.5) 12/31/24 14:23 Total Bilirubin 0.6 mg/dL (0.15-1.2) 12/31/24 14:23 AST 61 U/L (0-32) H 12/31/24 14:23 ALT 79 U/L (0-33) H 12/31/24 14:23 Alkaline Phosphatase 261 U/L (35-105) H 12/31/24 14:23 Total Protein 7.5 g/dL (6.6-8.7) 12/31/24 14:23 Albumin 4.2 g/dL (3.5-5.2) 12/31/24 14:23 Globulin 3.3 g/dL (1.3-4.6) 12/31/24 14:23 Lipase 34 U/L (13-60) 12/31/24 14:23 Urine Color Yellow (Yellow) 12/31/24 14:24 Urine Appearance Clear (CLEAR) 12/31/24 14:24 Urine pH 6.0 (5-7) 12/31/24 14:24 Ur Specific [place] 1.035 (1.005-1.030) H 12/31/24 14:24 Urine Protein Negative (Negative) 12/31/24 14:24 Urine Glucose (UA) 3+ (Normal) H 12/31/24 14:24 Urine Ketones Negative (Negative) 12/31/24 14:24 Urine Blood Negative (Negative) 12/31/24 14:24 Urine Nitrate Negative (Negative) 12/31/24 14:24 Urine Bilirubin Negative (Negative) 12/31/24 14:24 Urine Urobilinogen 1.0 mg/dL (Negative) 12/31/24 14:24 Ur Leukocyte Esterase Negative (Negative) 12/31/24 14:24 Amorphous Sediment Not Reportable 12/31/24 14:24 Serum Ketones Negative (Negative) 12/31/24 14:23 All radiology interpretation(s) finalized by discharge Discharge Plan Discharge Patient Disposition: Home Clinical Impression: Hyperglycemia, Diabetes mellitus Condition: Stable Prescriptions: Discontinued metformin 500 mg tablet 500 mg PO BID Qty: 60 6RF No Action (DME) True Metrix Glucose Test Strip Strip See Rx Instructions .Route Qty: 100 6RF Rx Instructions: As directed thiamine HCl (vitamin B1) 100 mg tablet 100 mg PO DAILY Qty: 30 6RF cyanocobalamin (vitamin B-12) [Vitamin B-12] 500 mcg tablet 500 mcg PO DAILY Qty: 30 6RF (DME) pen needle, diabetic [TechLITE Pen Needle] 31 gauge x 5/16 needle See Rx Instructions .ROUTE .MEDSUPPLY Qty: 100 6RF Rx Instructions: As directed quetiapine [Seroquel] 25 mg tablet 25 mg PO DAILY Qty: 30 6RF (DME) Dexcom G6 Transmitter Device See Rx Instructions .Route Qty: 1 6RF Rx Instructions: As directed (DME) Dexcom G6 Sensor Device See Rx Instructions .Route Qty: 3 6RF Rx Instructions: As directed cholecalciferol (vitamin D3) 50 mcg (2,000 unit) capsule 100 mcg PO DAILY Qty: 60 6RF insulin lispro [Humalog KwikPen Insulin] 100 unit/mL insulin pen 15 unit SUBCUT .ACHS Qty: 15 6RF Rx Instructions: Sliding scale - ACHS Glucose 150-200 - 2 units 201-250 - 4U 251-300 - 6U 301-350 - 8U 351-400 - 10U 401+ - 15U potassium chloride [Klor-Con 10] 10 mEq tablet extended release 10 meq PO DAILY Qty: 30 6RF amoxicillin-pot clavulanate 875-125 mg tablet 1 tab PO BID Qty: 14 0RF (DME) blood-glucose meter [OneTouch Ultra2 Meter] Misc See Rx Instructions .Route Qty: 1 0RF Rx Instructions: As directed (DME) lancets [OneTouch Delica Plus Lancet] 33 gauge misc See Rx Instructions .ROUTE .MEDSUPPLY Qty: 100 12RF Rx Instructions: As directed (DME) OneTouch Ultra Test Strip See Rx Instructions .Route Qty: 100 6RF Rx Instructions: As directed to test glucose TID (DME) pen needle, diabetic [Pentips Pen Needle] 31 gauge x 5/16 needle See Rx Instructions .ROUTE .COMPLEX Qty: 100 6RF Dose Instruction: USE DIRECTED Rx Instructions: USE DIRECTED albuterol sulfate 90 mcg/actuation HFA aerosol inhaler 2 puff inhalation Q6H PRN (Reason: shortness of breath or wheezing) Qty: 8.5 6RF (DME) Dexcom G6 Gas Appliance Repairer Misc See Rx Instructions .Route Qty: 2 6RF Rx Instructions: As directed budesonide-formoterol [Symbicort] 80-4.5 mcg/actuation HFA aerosol inhaler 1 puff inhalation BID PRN (Reason: Shortness Of Breath) venlafaxine 75 mg capsule,extended release 24hr 75 mg PO DAILY Trulicity 1.5 mg/0.5 mL pen injector 1.5 mg SUBCUT Q7D Rx Instructions: atorvastatin 10 mg tablet 10 mg PO DAILY insulin glargine [Lantus Solostar U-100 Insulin] 100 unit/mL (3 mL) insulin pen 70 unit SUBCUT BID Rx Instructions: Inject 70 units twice daily. Increase by 5 units Q3 days if fasting glucose>150 consistently. Max dose 150 units/day Discharge Orders: Discharge ED (Routine); Ordered 12/31/24 Ordered By: Cory Weinberg Referrals: Lewis Allen MD [Primary Care Provider, Family Practice] Patient Instructions: Opioid Safety, Pain Management, Patient Portal & Sriram Instructions Activity Restrictions/Additional Instructions: Thank you for choosing [facility] for your healthcare needs today. It is very important that you follow up as instructed or that you return to the Emergency Department should you have concerns or if your condition changes or worsens in any way. Emergency department visits are focused on emergent conditions, in some cases you may require further evaluation on an outpatient basis. You were seen in the emergency room with complaints of an elevated blood sugar. There is no sign of DKA. You were given IV fluids and glucose your blood sugar did improve. Recommend increasing your Lantus to 80 mg twice a day. Continue sliding scale and follow-up with your primary care doctor as soon as you are able. Recommend holding your metformin. Follow-up with your doctor within the next week. (Please note that included in your discharge packet is information concerning opioid safety and pain management. This information is given to all patients were discharged from the ER regardless of their discharge diagnosis or the medicines they usually take or are prescribed.) Print Language: Mongolian Coding Level of Care Code ED [place] Stitcher for Lakisha Camara
[2024-12-31 14:46] LABS: Alanine Aminotransferase 79 U/L (0-33); Albumin Level 4.2 g/dL (3.5-5.2); Alkaline Phosphatase 261 U/L (35-105); Anion Gap 20.5 (5-19); Aspartate Amino Transferase 61 U/L (0-32); Blood Urea Nitrogen 3 mg/dL (6-20); Calcium 9.0 mg/dL (8.5-10.5); Carbon Dioxide 21 mmol/L (22-29); Chloride 87 mmol/L (98-107); Creatinine Clr Calc Pharmacy 127.8425; Globulin 3.3 g/dL (1.3-4.6); Lipase 34 U/L (13-60); Osmolality Calculated 292 mOsm/kg (285-295); Potassium 3.5 mmol/L (3.5-5.1); Sodium 125 mmol/L (136-145); Total Protein 7.5 g/dL (6.6-8.7)
[2024-12-31 14:48] LABS: Glucose 737 mg/dL (65-115)
--- NOTE | 2024-12-31 14:55 | ECG_ITS ---
[facility] Test Date: 2024-12-31 Pat Name: Cherri Miguel Department: Room: Gender: Female Research Recruiter: : 1985 Requested By: Cory Edwards Order Number: [id number] Savana MD: Costa Hines M.D. Measurements Intervals [place] Rate: 117 P: 46 SD: 120 QRS: 5 QRSD: 86 T: 32 QT: 346 QTc: 484 Interpretive Statements SINUS TACHYCARDIA POSSIBLE LEFT ATRIAL ENLARGEMENT [-0.1mV P-WAVE IN V1/V2] POSSIBLE RIGHT VENTRICULAR CONDUCTION DELAY [RSR (QR) IN V1/V2] ABNORMAL RHYTHM ECG No previous ECG available for comparison Electronically Signed On 01-02-2025 08:39:10 CDT by Costa Hines M.D. [email or web address]
[2024-12-31 14:56] LABS: Lactic Sepsis W/Reflex 6.5 mmol/L (0.5-2.2)
[2024-12-31 15:00] LABS: Ketone (Acetest) Serum Negative (Negative); Slide Review Slide Review Perform
[2024-12-31 15:11] LABS: Add Urine Microscopic? NO
[2024-12-31 15:15] LABS: Glucose Urine UA 3+ (Normal); Nitrate Urine Negative (Negative)
[2024-12-31 15:18] LABS: Charge for UA Resulting for Rev; Specific Gravity, Urine 1.035 (1.005-1.030)
[2024-12-31 16:14] LABS: Reflex Lactate Order REFLEX LACTIC ORDERD
[2024-12-31] MEDS: cefTRIAXone 1,000 mg SDV 1000 MG IVP (16:27)
[2024-12-31 17:04] VITALS: BP 144/101; PULSE 96; O2SAT 98
[2024-12-31 17:47] VITALS: BP 144/101; PULSE 91; O2SAT 98
== END 2024-12-31 17:58 | disposition home or self-care (01) ==
PROVIDERS: Emergency Provider Family Medicine; PCP Family Medicine
DX: E11.65 Type 2 diabetes mellitus with hyperglycemia (principal); Z79.4 Long term (current) use of insulin; Z79.85 Long-term (current) use of injectable non-insulin antidiabetic drugs; F17.210 Nicotine dependence, cigarettes, uncomplicated; E11.9 Type 2 diabetes mellitus without complications; I10 Essential (primary) hypertension; J44.9 Chronic obstructive pulmonary disease, unspecified
CPT/HCPCS: 36415; 36416; 36600; 71045; 80051; 80053; 81003; 82009; 82330; 82805; 82962; 83605; 83690; 85025; 87040; 93005; 96361; 96374; 96375; 96376; 99285; J0696; J1815; J7030

== ENCOUNTER → 2025-01-10 08:48 | Outpatient (BNVA) | payer MEDICAID, SELFPAY | PROVIDERS: PCP Family Medicine; Visit Provider Family Medicine | DX: Z51.81 Encounter for therapeutic drug level monitoring (principal) | CPT/HCPCS: 80053 ==

== ENCOUNTER → 2025-01-21 14:42 | Outpatient (BNVA) | payer MEDICAID, SELFPAY | PROVIDERS: PCP Family Medicine; Visit Provider Physician Assistant | DX: Z98.890 Other specified postprocedural states (principal) | CPT/HCPCS: 99024 ==

== ENCOUNTER 2025-01-30 13:12 | Outpatient (CLI) | payer MEDICAID, SELFPAY ==
--- NOTE | 2025-01-30 13:15 | CT_ITS ---
WS: [id number] CT ABDOMEN WITH CONTRAST HISTORY: Abdominal pain Contiguous single phase 5 mm axial imaging performed to the abdomen. Oral contrast has been provided. Coronal and sagittal reformats are submitted. All CT scans at [facility] use at least one of these dose optimization techniques: automated exposure control; mA and/or kV adjustment per patient size (includes targeted exams where dose is matched to clinical indication); or iterative reconstruction. IV CONTRAST: Omnipaque 350; 100 mL IV. Oral contrast: No DLP: 345.25 mGy.cm COMPARISON: 06/01/2021 Lower thorax: Lung bases are clear. Heart is normal size. Small hiatal hernia. Liver/biliary system: Normal size with no intrahepatic dilatation. Gallbladder: Status post cholecystectomy. Pancreas: Normal size pancreas and pancreatic duct. No adjacent inflammation. Spleen: Normal size spleen. No mass or infarct. Adrenal glands: Normal. Right kidney: Normal. Left kidney: Normal. Aorta: Normal. Lymphadenopathy: None. Free fluid: None. GI tract: Moderate constipation in the visualized RIGHT colon. The entire colon is not included on this examination as only CT of the abdomen is requested. RIGHT fecal retention extending through the hepatic flexure. No obstruction. No colitis. Abdominal wall: Unremarkable abdominal wall. No hernia. Visualized osseous structures: Unremarkable. CT/CT abdomen w con* [id number] IMPRESSION: 1. Prior cholecystectomy. 2. No acute abnormalities identified in the CT of the abdomen. 3. Ascending and hepatic flexure constipation. The entire colon was not includ ed in the CT of the abdomen. 4. No ascites or adenopathy. 5. No renal obstruction.
[2025-01-30] MEDS: iohexol 350 mg/mL 500 mL Btl (per mL) IV (14:13)
== END 2025-01-30 13:13 | disposition home or self-care (01) ==
LOC: RAD 13:12
PROVIDERS: PCP Family Medicine; Visit Provider Family Medicine
DX: R10.9 Unspecified abdominal pain (principal); Z90.49 Acquired absence of other specified parts of digestive tract; K59.09 Other constipation
CPT/HCPCS: 74160